=== PATIENT | female | born 1995 | race Caucasian/White ===

== ENCOUNTER 2018-07-21 16:22 | Emergency (ER) | payer BC ==
[2018-07-21] MEDS ORDERED: Zofran 4 MG/2 ML VIAL IV ONE (16:50)
[2018-07-21] MEDS ORDERED: MORPHINE SULFATE 2 MG INJ IV ONE (16:50)
[2018-07-21] MEDS ORDERED: Lactated Ringers 1,000 ML IV ONE ×4 (16:51→18:05)
[2018-07-21] MEDS ORDERED: Zofran 4 MG/2 ML VIAL ONE (17:04)
[2018-07-21] MEDS ORDERED: MORPHINE SULFATE 2 MG INJ ONE (17:04)
--- NOTE | 2018-07-21 17:05 | ERPHSYRPT ---
- History of Present Illness Time Seen by Provider: 07/21/18 16:35 Source: patient Exam Limitations: no limitations Physician History: patient became ill yesterday with abdominal cramps and n&V - clear fluid; no travel; no exposures; no prior hx; diarrhea started today aobut 2 hrs ago- clear watery; no bad food; ? fever and chills and abd cramps; no recent periods - on shots; Timing/Duration: yesterday (onset cramps generalized and N&V; diarrhea this pm) , sudden, worse Severity: severe Modifying Factors: Improves With: eating Associated Symptoms: nausea, vomiting, abdominal pain, chills, loss of appetite , other (diarrhea) Allergies/Adverse Reactions: No Known Drug Allergies Allergy (Unverified 07/21/18 17:02) - Review of Systems Constitutional: Fever, Chills Eyes: No Symptoms Ears, Nose, & Throat: No Symptoms Respiratory: Cough (sinus drainage), No Cyanosis, No Dyspnea, No Dyspnea on Exertion (SELLERS) Cardiac: Palpitations, No Chest Pain, No Edema, No Syncope, No PND Abdominal/Gastrointestinal: Abdominal Pain, Nausea, Vomiting, Diarrhea, No Constipation, No Hematemesis, No Hematochezia, No Melena Genitourinary Symptoms: No Symptoms Musculoskeletal: No Symptoms Skin: No Symptoms Neurological: No Symptoms Psychological: No Symptoms Endocrine: No Symptoms Hematologic/Lymphatic: No Symptoms Immunological/Allergic: No Symptoms - Past Medical History Pertinent Past Medical History: Yes Cardiac History: Arrhythmia - Past Surgical History Past Surgical History: Yes Cardiac: Other (ablation) Other Surgical History: T&A - Social History Smoking Status: Never smoker Exposure to second hand smoke: No Alcohol Use: Socially Drug Use: none Patient Lives Alone: No Significant Family History: no pertinent family hx - Female History Hx Now: No - Nursing Vital Signs Nursing Vital Signs: Initial Vital Signs Temperature 98.9 F 07/21/18 16:53 Pulse Rate 126 H 07/21/18 16:53 Respiratory Rate 20 07/21/18 16:53 Blood Pressure 123/89 07/21/18 16:53 O2 Sat by Pulse Oximetry 100 07/21/18 16:53 Pain Scale Pain Intensity 6 - Physical Exam General Appearance: moderate distress, alert, thin Eye Exam: PERRL/EOMI, eyes nml inspection Ears, Nose, Throat Exam: normal ENT inspection, TMs normal, pharynx normal, moist mucous membranes Neck Exam: normal inspection, non-tender, supple, full range of motion, No meningismus Respiratory Exam: normal breath sounds, lungs clear, airway intact, No chest tenderness, No respiratory distress Cardiovascular Exam: regular rate/rhythm, normal heart sounds, normal peripheral pulses, tachycardia (145), capillary refill 2-3 sec, No murmur, No edema, No pulse deficit Gastrointestinal/Abdomen Exam: soft, tenderness (slight epigastric), No normal bowel sounds (hyperactive), No distention, No guarding, No pulsatile mass, No rebound, No organomegaly Pelvic Exam: deferred Rectal Exam: deferred Back Exam: normal inspection, normal range of motion, No CVA tenderness Extremity Exam: normal inspection, normal range of motion, No guera's sign, No pedal edema Neurologic Exam: alert, oriented x 3, cooperative, ambulance paramedic II-XII nml as tested, nml station & gait Skin Exam: normal color, warm, dry, No rash, No petechiae, No jaundice, No cyanosis SpO2 Interpretation: normal SpO2: 99 Oxygen Delivery: Room Air - Course Nursing assessment & vital signs reviewed: Yes Rhythm Strip: Rate, Sinus Tachycardia (142) Ordered Tests: Active Orders 24 hr Category Date Time Status IV Insertion STAT Care 07/21/18 16:50 Active NPO (ED) STAT Care 07/21/18 16:50 Active Re-Check Vital Signs STAT Care 07/21/18 16:50 Active AMYLASE Stat Lab 07/21/18 17:21 Completed CBC W DIFF Stat Lab 07/21/18 17:21 Completed CMP Stat Lab 07/21/18 17:21 Completed HCG QUALITATIVE,SERUM Stat Lab 07/21/18 17:21 Completed LIPASE Stat Lab 07/21/18 17:21 Completed UA W/RFX UR CULTURE Stat Lab 07/21/18 Completed Medication Summary Generic Name Dose Route Start Last Admin Trade Name Freq PRN Reason Stop Dose Admin Lactated Ringer's 1,000 mls @ 999 mls/hr 07/21/18 18:05 07/21/18 18:13 Lactated Ringers IV 07/21/18 19:05 999 mls/hr .Q1H1M ONE Administration Discontinued Medications Generic Name Dose Route Start Last Admin Trade Name Freq PRN Reason Stop Dose Admin Lactated Ringer's 1,000 mls @ 999 mls/hr 07/21/18 16:51 07/21/18 17:09 Lactated Ringers IV 07/21/18 17:51 999 mls/hr .Q1H1M ONE Administration Lactated Ringer's Confirm 07/21/18 17:04 Lactated Ringers Administered 07/21/18 17:05 Dose 1,000 mls @ ud IV .STK-MED ONE Lactated Ringer's Confirm 07/21/18 18:04 Lactated Ringers Administered 07/21/18 18:05 Dose 1,000 mls @ ud IV .STK-MED ONE Morphine Sulfate 2 mg 07/21/18 16:50 07/21/18 17:09 Morphine Sulfate 2 Mg Inj IV 07/21/18 16:51 2 mg STAT ONE Administration Morphine Sulfate Confirm 07/21/18 17:04 Morphine Sulfate 2 Mg Inj Administered 07/21/18 17:05 Dose 2 mg .ROUTE .STK-MED ONE Ondansetron HCl 4 mg 07/21/18 16:50 07/21/18 17:09 Zofran 4 Mg/2 Ml Vial IV 07/21/18 16:51 4 mg STAT ONE Administration Ondansetron HCl Confirm 07/21/18 17:04 Zofran 4 Mg/2 Ml Vial Administered 07/21/18 17:05 Dose 4 mg .ROUTE .STK-MED ONE Promethazine HCl 12.5 mg 07/21/18 17:22 07/21/18 17:25 Phenergan 25 Mg Inj IV 07/21/18 17:23 12.5 mg STAT ONE Administration Promethazine HCl Confirm 07/21/18 17:23 Phenergan 25 Mg Inj Administered 07/21/18 17:24 Dose 25 mg .ROUTE .STK-MED ONE Lab/Rad Data: Laboratory Result Diagrams 07/21/18 17:21 07/21/18 17:21 Laboratory Results 07/21/18 07/21/18 07/21/18 Range/Units Unknown 17:21 17:21 WBC (4.0-10.5) K/mm3 RBC (4.1-5.4) M/mm3 Hgb (12.0-16.0) gm/dl Hct (35-47) % MCV (78-100) fl MCH (26-32) pg MCHC (32-36) g/dl RDW (11.5-14.0) % Plt Count (150-450) K/mm3 MPV (6-9.5) fl Gran % (36.0-66.0) % Eos # (Auto) (0-0.5) Absolute Lymphs (auto) (1.0-4.6) Absolute Monos (auto) (0.0-1.3) Lymphocytes % (24.0-44.0) % Monocytes % (0.0-12.0) % Eosinophils % (0.00-5.0) % Basophils % (0.0-0.4) % Absolute Granulocytes (1.4-6.9) Basophils # (0-0.4) Sodium 146 H (137-145) mmol/L Potassium 3.3 L (3.5-5.1) mmol/L Chloride 107 (98-107) mmol/L Carbon Dioxide 22 (22-30) mmol/L Anion Gap 19.9 H (5-15) MEQ/L BUN 8 (7-17) mg/dL Creatinine 0.76 (0.52-1.04) mg/dL Estimated GFR > 60.0 ML/MIN Glucose 127 H (74-106) mg/dL Calcium 10.1 (8.4-10.2) mg/dL Total Bilirubin 0.70 (0.2-1.3) mg/dL AST 23 (14-36) U/L ALT 23 (0-35) U/L Alkaline Phosphatase 109 (38-126) U/L Serum Total Protein 8.4 H (6.3-8.2) g/dL Albumin 5.3 H (3.5-5.0) g/dL Amylase 71 (30-110) U/L Lipase 52 (23-300) U/L Serum , Qual NEGATIVE (Negative) Ur Collection Type CCMS Urine Color YELLOW (YELLOW) Urine Appearance CLEAR (CLEAR) Urine pH 5.0 (5-6) Ur Specific [place] 1.025 (1.005-1.025) Urine Protein NEGATIVE (Negative) Urine Ketones LARGE (NEGATIVE) Urine Blood NEGATIVE (0-5) Pito/ul Urine Nitrite NEGATIVE (NEGATIVE) Urine Bilirubin NEGATIVE (NEGATIVE) Urine Urobilinogen NORMAL (0-1) mg/dL Ur Leukocyte Esterase NEGATIVE (NEGATIVE) Urine Culture Reflexed NO (NO) Urine Glucose NEGATIVE (NEGATIVE) mg/dL Specimen Received 07-21-18 1715 07/21/18 Range/Units 17:21 WBC 8.9 (4.0-10.5) K/mm3 RBC 4.52 (4.1-5.4) M/mm3 Hgb 14.8 (12.0-16.0) gm/dl Hct 40.4 (35-47) % MCV 89.4 (78-100) fl MCH 32.7 H (26-32) pg MCHC 36.6 H (32-36) g/dl RDW 12.8 (11.5-14.0) % Plt Count 205 (150-450) K/mm3 MPV 12.9 H (6-9.5) fl Gran % 79.7 H (36.0-66.0) % Eos # (Auto) 0.04 (0-0.5) Absolute Lymphs (auto) 1.29 (1.0-4.6) Absolute Monos (auto) 0.47 (0.0-1.3) Lymphocytes % 14.5 L (24.0-44.0) % Monocytes % 5.3 (0.0-12.0) % Eosinophils % 0.4 (0.00-5.0) % Basophils % 0.1 (0.0-0.4) % Absolute Granulocytes 7.10 H (1.4-6.9) Basophils # 0.01 (0-0.4) Sodium (137-145) mmol/L Potassium (3.5-5.1) mmol/L Chloride (98-107) mmol/L Carbon Dioxide (22-30) mmol/L Anion Gap (5-15) MEQ/L BUN (7-17) mg/dL Creatinine (0.52-1.04) mg/dL Estimated GFR ML/MIN Glucose (74-106) mg/dL Calcium (8.4-10.2) mg/dL Total Bilirubin (0.2-1.3) mg/dL AST (14-36) U/L ALT (0-35) U/L Alkaline Phosphatase (38-126) U/L Serum Total Protein (6.3-8.2) g/dL Albumin (3.5-5.0) g/dL Amylase (30-110) U/L Lipase (23-300) U/L Serum , Qual (Negative) Ur Collection Type Urine Color (YELLOW) Urine Appearance (CLEAR) Urine pH (5-6) Ur Specific [place] (1.005-1.025) Urine Protein (Negative) Urine Ketones (NEGATIVE) Urine Blood (0-5) Pito/ul Urine Nitrite (NEGATIVE) Urine Bilirubin (NEGATIVE) Urine Urobilinogen (0-1) mg/dL Ur Leukocyte Esterase (NEGATIVE) Urine Culture Reflexed (NO) Urine Glucose (NEGATIVE) mg/dL Specimen Received reviewed - Progress Progress: improved, re-examined Progress Note: 07/21/18 17:06 will give IV fluids, monitor and meds and recheck 07/21/18 17:23 rechecked and slight improvement in N&V but still present;still tahycardic; givning fluid bolus; UA clear and neg excpet for large ketones; will give phenergan, continue iv fluids and recheck 07/21/18 17:50 patient symptoms improving following meds and IV fluids; vS improving, N&V improving; CBC ok and preg test neg; significant other at bedside' will continue IV fluids 07/21/18 18:05 lytes showed low K+ of 3.3; will give second bolus of IV LR as vS improving; will monitor and recheck 07/21/18 18:51 much improved after second liter of fluids; feeling normal; vs normal; mother at bedside; treatmetn plan and instructions given Counseled pt/family regarding: lab results, diagnosis, need for follow-up - Departure Time of Disposition: 18:52 Departure Disposition: Home Clinical Impression: Acute gastroenteritis, Dehydration, Hypokalemia, Sinus tachycardia Condition: Good Critical Care Time: No Referrals: JANNET BRITO GEOLOGICAL SAMPLE TESTER [Primary Care Provider] - Instructions: Diarrhea and Traveler's Diarrhea -- Adult Additional Instructions: BRAT diet; yogurt; gatorade Follow-up with family doctor as directed. Call for appointment. Return if any problems. If you smoke please stop. Call or follow up with your family doctor for assistance if you need it to stop. Please wear your seatbelt when driving. Have a nice day. Thank you for allowing us to participate in your care today. :o) Dr Francisco Ibrahim Prescriptions: Ondansetron ODT 4 MG [Zofran Odt 4 mg] 4 mg PO Q6H PRN PRN #10 tab.rapdis PRN Reason: Nausea Loperamide HCl [Imodium A-D] 2 mg PO Q4-6HPRN PRN #10 tablet PRN Reason: Diarrhea
[2018-07-21 17:16] LABS: Appearance CLEAR (CLEAR); Leukocyte Esterase NEGATIVE (NEGATIVE); Nitrite NEGATIVE (NEGATIVE); Specific Gravity 1.025 (1.005-1.025)
[2018-07-21 17:17] LABS: Bilirubin NEGATIVE (NEGATIVE); Blood NEGATIVE Ery/ul (0-5); Glucose NEGATIVE (NEGATIVE); Ketones LARGE (NEGATIVE); Protein,Urine Dip NEGATIVE (Negative); Urobilinogen NORMAL mg/dL (0-1)
[2018-07-21] MEDS ORDERED: Phenergan 25 MG INJ IV ONE (17:22)
[2018-07-21] MEDS ORDERED: Phenergan 25 MG INJ ONE (17:23)
[2018-07-21 17:25] VITALS: O2SAT 99
[2018-07-21 17:34] LABS: BASOPHIL % 0.1 % (0.0-0.4); Basophil (Absolute #) 0.01 (0-0.4); Eosinophil % 0.4 % (0.00-5.0); Eosinophil (Absolute #) 0.04 (0-0.5); Granulocytes % 79.7 % (36.0-66.0); Hematocrit 40.4 % (35-47); Hemoglobin 14.8 gm/dl (12.0-16.0); Lymphocyte (Absolute #) 1.29 (1.0-4.6); Lymphocytes % 14.5 % (24.0-44.0); Mean Cell Volume 89.4 fl (78-100); Mean Corpuscular Hemoglobin 32.7 pg (26-32); Mean Corpuscular Hgb Concent. 36.6 g/dl (32-36); Mean Platelet Volume 12.9 fl (6-9.5); Monocyte (Absolute #) 0.47 (0.0-1.3); Monocytes % 5.3 % (0.0-12.0); Platelet Count 205 K/mm3 (150-450); Red Blood Count 4.52 M/mm3 (4.1-5.4); Red Cell Distribution Width 12.8 % (11.5-14.0); White Blood Count 8.9 K/mm3 (4.0-10.5)
[2018-07-21 17:58] LABS: ALBUMIN 5.3 g/dL (3.5-5.0); ALKALINE PHOSPHATASE 109 U/L (38-126); AMYLASE 71 U/L (30-110); ANION GAP 19.9 MEQ/L (5-15); BLOOD UREA NITROGEN 8 mg/dL (7-17); CHLORIDE 107 mmol/L (98-107); Calcium 10.1 mg/dL (8.4-10.2); Carbon Dioxide 22 mmol/L (22-30); Creatinine 1 0.76 mg/dL (0.52-1.04); Glucose 127 mg/dL (74-106); LIPASE 52 U/L (23-300); Potassium 3.3 mmol/L (3.5-5.1); SGOT/AST 23 U/L (14-36); SGPT/ALT 23 U/L (0-35); SODIUM 146 mmol/L (137-145); Total Protein 8.4 g/dL (6.3-8.2)
[2018-07-21 18:56] VITALS: BP 136/70; PULSE 53
== END 2018-07-21 19:28 | disposition home or self-care (01) ==
LOC: ED 16:22
DX: K52.9 Noninfective gastroenteritis and colitis, unspecified (principal); E86.0 Dehydration; E87.6 Hypokalemia; R00.0 Tachycardia, unspecified
CPT/HCPCS: 36000; 36415; 80053; 81002; 82150; 83690; 84703; 85025; 96360; 96361; 96374; 96375; 99284; J2270; J2405; J2550

== ENCOUNTER 2021-01-11 20:38 | Emergency (ER) | payer BC ==
[2021-01-11] MEDS ORDERED: Zofran 4 MG/2 ML VIAL IV ONE (20:56)
[2021-01-11] MEDS ORDERED: Sodium Chloride 0.9% 1000 ML 1,000 ML IV STA (20:56)
[2021-01-11] MEDS ORDERED: MORPHINE SULFATE 2 MG INJ IV ONE (20:56)
[2021-01-11] MEDS ORDERED: MORPHINE SULFATE 2 MG INJ ONE (21:06)
[2021-01-11] MEDS ORDERED: Zofran 4 MG/2 ML VIAL ONE (21:06)
[2021-01-11] MEDS ORDERED: Sodium Chloride 0.9% 1000 ML 1,000 ML ONE (21:07)
[2021-01-11 21:11] LABS: Appearance CLEAR (CLEAR); Bilirubin NEGATIVE (NEGATIVE); Blood NEGATIVE Ery/ul (0-5); Glucose NEGATIVE (NEGATIVE); Ketones TRACE (NEGATIVE); Leukocyte Esterase NEGATIVE (NEGATIVE); Mucus SLIGHT /HPF (NEGATIVE); Nitrite NEGATIVE (NEGATIVE); Protein,Urine Dip NEGATIVE (Negative); Specific Gravity 1.025 (1.005-1.025); Urobilinogen NEGATIVE mg/dL (0-1); WBC 0-2 /HPF (0-5)
[2021-01-11 21:12] VITALS: O2SAT 100
[2021-01-11 21:20] LABS: INR 1.11 (0.8-3.0); PROTIME 12.5 SECONDS (9.95-12.35)
[2021-01-11 21:21] LABS: Bacteria NONE SEEN /HPF (NEGATIVE)
[2021-01-11 21:25] LABS: ALBUMIN 4.3 g/dL (3.5-5.0); ALKALINE PHOSPHATASE 59 U/L (38-126); AMYLASE 63 U/L (30-110); ANION GAP 11.9 MEQ/L (5-15); BLOOD UREA NITROGEN 10 mg/dL (7-17); CHLORIDE 102 mmol/L (98-107); Calcium 9.9 mg/dL (8.4-10.2); Carbon Dioxide 26 mmol/L (22-30); Creatinine 1 0.54 mg/dL (0.52-1.04); EST GLOMERULAR FILTRATION RATE > 60.0 ML/MIN; Glucose 101 mg/dL (74-106); LIPASE 62 U/L (23-300); Potassium 4.1 mmol/L (3.5-5.1); SGOT/AST 21 U/L (14-36); SGPT/ALT 20 U/L (0-35); SODIUM 135 mmol/L (137-145); Total Protein 7.3 g/dL (6.3-8.2)
[2021-01-11 21:31] LABS: Absolute Neutrophil Ct (ANC) 9.88 (1.4-6.9); BASOPHIL % 0.1 % (0.0-0.4); Basophil (Absolute #) 0.01 (0-0.4); Eosinophil % 0.4 % (0.00-5.0); Eosinophil (Absolute #) 0.05 (0-0.5); Hematocrit 38.6 % (35-47); Hemoglobin 12.9 gm/dl (12.0-16.0); Lymphocyte (Absolute #) 1.62 (1.0-4.6); Lymphocytes % 13.2 % (24.0-44.0); Mean Cell Volume 92.1 fl (78-100); Mean Corpuscular Hemoglobin 30.8 pg (26-32); Mean Corpuscular Hgb Concent. 33.4 g/dl (32-36); Mean Platelet Volume 11.8 fl (7.5-11.0); Monocyte (Absolute #) 0.72 (0.0-1.3); Monocytes % 5.9 % (0.0-12.0); Neutrophil % 80.4 % (36.0-66.0); Platelet Count 217 K/mm3 (150-450); Red Blood Count 4.19 M/mm3 (4.1-5.4); Red Cell Distribution Width 12.2 % (11.5-14.0); White Blood Count 12.3 K/mm3 (4.0-10.5)
--- NOTE | 2021-01-11 21:34 | ERPHSYRPT ---
- History of Present Illness Time Seen by Provider: 01/11/21 20:55 Historian: patient Exam Limitations: no limitations Patient Subjective Stated Complaint: pt states that "I have had nausea and vomiting consent for the past 4 hours." Triage Nursing Assessment: pt ambulated into the er; pt is axo x3; c/o N/V/D; c/o RLQ pain; pt states that she has had diarrhea for the past week; pt denies fever; pt states that emesis is yellow to white; pt states that she is unable to keep things down after ingestion; pt states that she is 8 weeks and 6 days p regnant; abd is soft; active bowel sounds in all quads; clear heart tone; clear lung sounds in all lobes; strong radial pulses; mucus membranes are pink and moist; afebrile; vitals wnl Physician History: Patient is a 25-year-old 2 para 2 female at 9 weeks gestation who presents with 4 hours worth of uncontrollable nausea and vomiting. She has seen Dr. Landry who will be taking her care she had an ultrasound done on 31 December which did show a single intrauterine at 7 weeks with a small subchorionic hemorrhage. Patient also complains of right-sided crampy pain for several days some slight spotting probably secondary to the subchorionic hemorrhage and the nausea and vomiting. Timing/Duration: day(s) (Several) Activities at Onset: none Quality: cramping Abdominal Pain Onset Location: RLQ Pain Radiation: no radiation Severity of Pain-Max: moderate Severity of Pain-Current: moderate Modifying Factors: Improves With: nothing Associated Symptoms: diarrhea, nausea, vomiting Allergies/Adverse Reactions: No Known Drug Allergies Allergy (Verified 01/11/21 20:52) Home Medications: Propranolol HCl 60 mg PO DAILY 01/11/21 [History] Hx Tetanus, Diphtheria Vaccination/Date Given: Yes Hx Influenza Vaccination/Date Given: No Hx Pneumococcal Vaccination/Date Given: No Travel Risk - International Travel Have you traveled outside of the country in past 3 weeks: No - Coronavirus Screening Are you exhibiting any of the following symptoms?: Yes Symptoms: Vomiting/Diarrhea Close contact with a COVID-19 positive Pt in past 14-21 Days: No - Review of Systems Constitutional: No Fever, No Chills Eyes: No Symptoms Ears, Nose, & Throat: No Symptoms Respiratory: No Cough, No Dyspnea Cardiac: No Chest Pain, No Edema, No Syncope Abdominal/Gastrointestinal: Abdominal Pain, Nausea, Vomiting, Diarrhea Genitourinary Symptoms: No Dysuria Musculoskeletal: No Back Pain, No Neck Pain Skin: No Rash Neurological: No Dizziness, No Focal Weakness, No Sensory Changes Psychological: No Symptoms Endocrine: No Symptoms All Other Systems: Reviewed and Negative - Past Medical History Pertinent Past Medical History: Yes Cardiac History: Arrhythmia - Past Surgical History Past Surgical History: Yes Cardiac: Other Musculoskeletal: Orthopedic Surgery Other Surgical History: T&A,left hand surgery - Social History Smoking Status: Never smoker Exposure to second hand smoke: No Alcohol Use: Socially Drug Use: none Patient Lives Alone: No Significant Family History: no pertinent family hx - Female History Hx Now: Yes (8 weeks 6 days) - Nursing Vital Signs Nursing Vital Signs: Initial Vital Signs Temperature 98.3 F 01/11/21 20:48 Pulse Rate 102 H 01/11/21 20:48 Respiratory Rate 18 01/11/21 20:48 Blood Pressure 137/89 01/11/21 20:48 O2 Sat by Pulse Oximetry 100 01/11/21 20:48 Pain Scale Pain Intensity 2 - Physical Exam General Appearance: mild distress, alert Eye Exam: PERRL/EOMI, eyes nml inspection Ears, Nose, Throat Exam: normal ENT inspection, pharynx normal, moist mucous membranes Neck Exam: normal inspection, non-tender, supple, full range of motion Respiratory Exam: normal breath sounds, lungs clear, No respiratory distress Cardiovascular Exam: regular rate/rhythm, normal heart sounds Gastrointestinal/Abdomen Exam: soft, normal bowel sounds, other (Even though the patient is approximately 8 weeks and for 5 days we did obtain heart tones with the Doppler), No tenderness, No mass Pelvic Exam: not done Back Exam: normal inspection, normal range of motion, No CVA tenderness, No vertebral tenderness Extremity Exam: normal inspection, normal range of motion, pelvis stable Neurologic Exam: alert, oriented x 3, cooperative, normal mood/affect, nml cerebellar function, sensation nml, No motor deficits Skin Exam: normal color, warm, dry SpO2: 100 - Course Nursing assessment & vital signs reviewed: Yes Ordered Tests: Active Orders 24 hr Category Date Time Status IV Insertion STAT Care 01/11/21 20:56 Active AMYLASE Stat Lab 01/11/21 21:05 Completed CBC W DIFF Stat Lab 01/11/21 21:05 Completed CMP Stat Lab 01/11/21 21:05 Completed LIPASE Stat Lab 01/11/21 21:05 Completed Lactic Acid Stat Lab 01/11/21 21:15 Completed PROTIME WITH INR Stat Lab 01/11/21 21:05 Completed UA W/RFX UR CULTURE Stat Lab 01/11/21 21:05 Completed Medication Summary Discontinued Medications Generic Name Dose Route Start Last Admin Trade Name Lavonne PRN Reason Stop Dose Admin Sodium Chloride 1,000 mls @ 999 mls/hr 01/11/21 20:56 01/11/21 21:09 Sodium Chloride 0.9% 1000 Ml IV 01/11/21 21:56 999 mls/hr .Q1H1M STA Administration Sodium Chloride Confirm 01/11/21 21:07 Sodium Chloride 0.9% 1000 Ml Administered 01/11/21 21:08 Dose 1,000 mls @ ud .ROUTE .STK-MED ONE Morphine Sulfate 2 mg 01/11/21 20:56 01/11/21 21:12 Morphine Sulfate 2 Mg Inj IV 01/11/21 20:57 2 mg STAT ONE Administration Morphine Sulfate Confirm 01/11/21 21:06 Morphine Sulfate 2 Mg Inj Administered 01/11/21 21:07 Dose 2 mg .ROUTE .STK-MED ONE Ondansetron HCl 4 mg 01/11/21 20:56 01/11/21 21:10 Zofran 4 Mg/2 Ml Vial IV 01/11/21 20:57 4 mg STAT ONE Administration Ondansetron HCl Confirm 01/11/21 21:06 Zofran 4 Mg/2 Ml Vial Administered 01/11/21 21:07 Dose 4 mg .ROUTE .STK-MED ONE Lab/Rad Data: Laboratory Result Diagrams 01/11/21 21:05 01/11/21 21:05 Laboratory Results 01/11/21 01/11/21 01/11/21 Range/Units 21:15 21:05 21:05 WBC (4.0-10.5) K/mm3 RBC (4.1-5.4) M/mm3 Hgb (12.0-16.0) gm/dl Hct (35-47) % MCV (78-100) fl MCH (26-32) pg MCHC (32-36) g/dl RDW (11.5-14.0) % Plt Count (150-450) K/mm3 MPV (7.5-11.0) fl Gran % (36.0-66.0) % Eos # (Auto) (0-0.5) Absolute Lymphs (auto) (1.0-4.6) Absolute Monos (auto) (0.0-1.3) Lymphocytes % (24.0-44.0) % Monocytes % (0.0-12.0) % Eosinophils % (0.00-5.0) % Basophils % (0.0-0.4) % Absolute Granulocytes (1.4-6.9) Basophils # (0-0.4) PT 12.5 H (9.95-12.35) SECONDS INR 1.11 (0.8-3.0) Sodium (137-145) mmol/L Potassium (3.5-5.1) mmol/L Chloride (98-107) mmol/L Carbon Dioxide (22-30) mmol/L Anion Gap (5-15) MEQ/L BUN (7-17) mg/dL Creatinine (0.52-1.04) mg/dL Estimated GFR ML/MIN Glucose (74-106) mg/dL Lactic Acid 1.4 (0.4-2.0) Calcium (8.4-10.2) mg/dL Total Bilirubin (0.2-1.3) mg/dL AST (14-36) U/L ALT (0-35) U/L Alkaline Phosphatase (38-126) U/L Serum Total Protein (6.3-8.2) g/dL Albumin (3.5-5.0) g/dL Amylase (30-110) U/L Lipase (23-300) U/L Urine Color YELLOW (YELLOW) Urine Appearance CLEAR (CLEAR) Urine pH 5.0 (5-6) Ur Specific [place] 1.025 (1.005-1.025) Urine Protein NEGATIVE (Negative) Urine Ketones TRACE (NEGATIVE) Urine Blood NEGATIVE (0-5) Pito/ul Urine Nitrite NEGATIVE (NEGATIVE) Urine Bilirubin NEGATIVE (NEGATIVE) Urine Urobilinogen NEGATIVE (0-1) mg/dL Ur Leukocyte Esterase NEGATIVE (NEGATIVE) Urine WBC (Auto) 0-2 (0-5) /HPF Urine RBC (Auto) NONE (0-2) /HPF U Epithel Cells (Auto) NONE (FEW) /HPF Urine Bacteria (Auto) NONE SEEN (NEGATIVE) /HPF Urine Mucus (Auto) SLIGHT (NEGATIVE) /HPF Urine Culture Reflexed NO (NO) Urine Glucose NEGATIVE (NEGATIVE) mg/dL 01/11/21 01/11/21 Range/Units 21:05 21:05 WBC 12.3 H (4.0-10.5) K/mm3 RBC 4.19 (4.1-5.4) M/mm3 Hgb 12.9 (12.0-16.0) gm/dl Hct 38.6 (35-47) % MCV 92.1 (78-100) fl MCH 30.8 (26-32) pg MCHC 33.4 (32-36) g/dl RDW 12.2 (11.5-14.0) % Plt Count 217 (150-450) K/mm3 MPV 11.8 H (7.5-11.0) fl Gran % 80.4 H (36.0-66.0) % Eos # (Auto) 0.05 (0-0.5) Absolute Lymphs (auto) 1.62 (1.0-4.6) Absolute Monos (auto) 0.72 (0.0-1.3) Lymphocytes % 13.2 L (24.0-44.0) % Monocytes % 5.9 (0.0-12.0) % Eosinophils % 0.4 (0.00-5.0) % Basophils % 0.1 (0.0-0.4) % Absolute Granulocytes 9.88 H (1.4-6.9) Basophils # 0.01 (0-0.4) PT (9.95-12.35) SECONDS INR (0.8-3.0) Sodium 135 L (137-145) mmol/L Potassium 4.1 (3.5-5.1) mmol/L Chloride 102 (98-107) mmol/L Carbon Dioxide 26 (22-30) mmol/L Anion Gap 11.9 (5-15) MEQ/L BUN 10 (7-17) mg/dL Creatinine 0.54 (0.52-1.04) mg/dL Estimated GFR > 60.0 ML/MIN Glucose 101 (74-106) mg/dL Lactic Acid (0.4-2.0) Calcium 9.9 (8.4-10.2) mg/dL Total Bilirubin 0.30 (0.2-1.3) mg/dL AST 21 (14-36) U/L ALT 20 (0-35) U/L Alkaline Phosphatase 59 (38-126) U/L Serum Total Protein 7.3 (6.3-8.2) g/dL Albumin 4.3 (3.5-5.0) g/dL Amylase 63 (30-110) U/L Lipase 62 (23-300) U/L Urine Color (YELLOW) Urine Appearance (CLEAR) Urine pH (5-6) Ur Specific [place] (1.005-1.025) Urine Protein (Negative) Urine Ketones (NEGATIVE) Urine Blood (0-5) Pito/ul Urine Nitrite (NEGATIVE) Urine Bilirubin (NEGATIVE) Urine Urobilinogen (0-1) mg/dL Ur Leukocyte Esterase (NEGATIVE) Urine WBC (Auto) (0-5) /HPF Urine RBC (Auto) (0-2) /HPF U Epithel Cells (Auto) (FEW) /HPF Urine Bacteria (Auto) (NEGATIVE) /HPF Urine Mucus (Auto) (NEGATIVE) /HPF Urine Culture Reflexed (NO) Urine Glucose (NEGATIVE) mg/dL - Progress Progress: improved - Departure Departure Disposition: Home Clinical Impression: Nausea/vomiting in Condition: Stable Critical Care Time: No Referrals: JANNET BRITO LINE MANAGER [Primary Care Provider] - Instructions: Nausea and Vomiting of (DC) Prescriptions: Ondansetron ODT 4 MG [Zofran Odt 4 mg] 4 mg PO Q6H PRN PRN #10 tab.rapdis PRN Reason: Vomiting
[2021-01-11 22:03] VITALS: BP 125/78; PULSE 81
[2021-01-11] MEDS ORDERED: ZOFRAN ODT 4 MG PO ONE (22:16)
[2021-01-11] MEDS ORDERED: ZOFRAN ODT 4 MG ONE (22:18)
== END 2021-01-11 22:25 | disposition home or self-care (01) ==
LOC: ED 20:38
DX: O21.0 Mild hyperemesis gravidarum (principal); O26.851 Spotting complicating pregnancy, first trimester; Z3A.09 9 weeks gestation of pregnancy; R19.7 Diarrhea, unspecified; R10.31 Right lower quadrant pain
CPT/HCPCS: 36000; 36415; 80053; 81001; 82150; 83605; 83690; 85025; 85610; 96360; 96374; 96375; 99284; J2270; J2405; Q0162

== ENCOUNTER 2021-05-16 12:07 | Observation (INO) | payer MEDICAID ==
[2021-05-16 14:24] VITALS: BP 126/79; PULSE 95
[2021-05-16 18:35] VITALS: O2SAT 100
== END 2021-05-16 16:20 | disposition home or self-care (01) ==
LOC: OB 12:07
PROVIDERS: ADMIT Family Medicine; ATTEND Family Medicine
DX: Z34.82 Encounter for supervision of other normal pregnancy, second trimester (principal); Z3A.26 26 weeks gestation of pregnancy
CPT/HCPCS: 59025; G0378

== ENCOUNTER 2021-06-25 10:10 | Observation (INO) | payer OTHER ==
[2021-06-25 11:00] VITALS: BP 108/74; PULSE 97
--- NOTE | 2021-06-25 21:11 | XRAY ---
Exam: OB biophysical profile with nonstress from 06/25/2021. Comparison: None. Indication: History of preeclampsia. Findings: The fetus scored 2 points out of a maximum of 2 points for breathing movements, gross body movements, tone, and qualitative amniotic fluid volume. A single live fetus is seen in the cephalic lie. heart rate was 145 bpm. Amniotic fluid index was approximately 13.8 cm. Impression: 1. Biophysical profile score was 8 points out of a maximum of 8 points. See above.
== END 2021-06-25 12:15 | disposition home or self-care (01) ==
LOC: OB 10:10
PROVIDERS: ADMIT Family Medicine; ATTEND Family Medicine
DX: O14.93 Unspecified pre-eclampsia, third trimester (principal); Z3A.32 32 weeks gestation of pregnancy
CPT/HCPCS: 59025; 76818; G0378

== ENCOUNTER 2021-06-29 17:21 | Observation (INO) | payer OTHER ==
[2021-06-29 18:41] VITALS: O2SAT 97
[2021-06-29 19:15] LABS: White Blood Count 9.3 K/mm3 (4.0-10.5)
[2021-06-29 19:16] LABS: Hematocrit 31.7 % (35-47); Hemoglobin 10.3 gm/dl (12.0-16.0); Mean Cell Volume 97.5 fl (78-100); Mean Corpuscular Hemoglobin 31.7 pg (26-32); Mean Corpuscular Hgb Concent. 32.5 g/dl (32-36); Mean Platelet Volume 11.5 fl (7.5-11.0); Platelet Count 125 K/mm3 (150-450); Red Blood Count 3.25 M/mm3 (4.1-5.4); Red Cell Distribution Width 14.4 % (11.5-14.0)
[2021-06-29 19:22] LABS: ALBUMIN 3.6 g/dL (3.5-5.0); ALKALINE PHOSPHATASE 67 U/L (38-126); ANION GAP 12.7 MEQ/L (5-15); BLOOD UREA NITROGEN 5 mg/dL (7-17); CHLORIDE 105 mmol/L (98-107); Calcium 9.4 mg/dL (8.4-10.2); Carbon Dioxide 23 mmol/L (22-30); Creatinine 1 0.43 mg/dL (0.52-1.04); EST GLOMERULAR FILTRATION RATE > 60.0 ML/MIN; Glucose 106 mg/dL (74-106); Potassium 3.7 mmol/L (3.5-5.1); SGOT/AST 18 U/L (14-36); SGPT/ALT 9 U/L (0-35); SODIUM 137 mmol/L (137-145); Total Protein 6.5 g/dL (6.3-8.2)
[2021-06-29 19:52] LABS: BAND 3 % (0.0-2.0); Eosinophil 2 % (0.00-3.0); Lymphocytes 14 % (24-44); Metamyelocyte 3 %; Monocyte 4 % (0.0-12.0); Neutrophils 74 % (36.0-66.0); Platelet Estimate NORMAL (NORMAL); Total Cells Counted 100
[2021-06-29 20:06] LABS: Appearance CLEAR (CLEAR); Bilirubin NEGATIVE (NEGATIVE); Blood NEGATIVE Ery/ul (0-5); Epithelial Cells RARE /HPF (FEW); Glucose NEGATIVE (NEGATIVE); Ketones NEGATIVE (NEGATIVE); Leukocyte Esterase TRACE (NEGATIVE); Nitrite NEGATIVE (NEGATIVE); Protein,Urine Dip NEGATIVE (Negative); Urobilinogen NEGATIVE mg/dL (0-1)
[2021-06-29 20:23] LABS: Bacteria NONE SEEN /HPF (NEGATIVE)
[2021-06-29 20:38] VITALS: BP 123/77; PULSE 95
== END 2021-06-29 20:35 | disposition home or self-care (01) ==
LOC: OB 17:21
PROVIDERS: ADMIT Family Medicine; ATTEND Family Medicine
DX: Z34.83 Encounter for supervision of other normal pregnancy, third trimester (principal); Z3A.33 33 weeks gestation of pregnancy
CPT/HCPCS: 36415; 80053; 81001; 85025; G0378

== ENCOUNTER 2021-07-01 07:37 | Observation (INO) | payer OTHER ==
[2021-07-01 12:50] VITALS: BP 115/73; PULSE 107
--- NOTE | 2021-07-01 13:02 | XRAY ---
Indication: Preeclampsia. Ultrasound biophysical profile exam performed and compared to June 25, 2021. Again single viable intrauterine with heart rate 150 BPM. Four-quadrant DELORIS is 14.6 cm, largest pocket 4.4 cm. 2 points given for breathing, movements, tone, and qualitative amniotic fluid volume. Impression: Biophysical profile score remains 8 out of 8.
== END 2021-07-01 13:15 | disposition home or self-care (01) ==
LOC: OB 11:33
PROVIDERS: ADMIT Family Medicine; ATTEND Family Medicine
DX: O14.93 Unspecified pre-eclampsia, third trimester (principal); Z3A.33 33 weeks gestation of pregnancy
CPT/HCPCS: 59025; 76818; G0378

== ENCOUNTER 2021-07-08 11:29 | Observation (INO) | payer OTHER ==
--- NOTE | 2021-07-08 12:29 | XRAY ---
Exam: OB biophysical profile without nonstress from 07/08/2021. Comparison: OB biophysical profile with nonstress from 07/01/2021. Indication: 26-year-old female for follow-up; history of gestational diabetes. Findings: The heart rate measured 147 bpm. The fetus scored 2 points for breathing movements, gross body movements, tone, and qualitative amniotic fluid. The amniotic fluid index measured 15.4 cm, previously 14.6 cm. Impression: 1. OB biophysical profile scored 8 points out of a maximum of 8 points representing no significant change from 07/01/2021.
[2021-07-08 12:34] VITALS: BP 118/74; PULSE 110; O2SAT 97
== END 2021-07-08 12:47 | disposition home or self-care (01) ==
LOC: OB 11:29
PROVIDERS: ADMIT Family Medicine; ATTEND Family Medicine
DX: O14.93 Unspecified pre-eclampsia, third trimester (principal); Z3A.34 34 weeks gestation of pregnancy
CPT/HCPCS: 59025; 76819; G0378

== ENCOUNTER 2021-07-15 07:21 | Observation (INO) | payer OTHER ==
--- NOTE | 2021-07-15 12:35 | XRAY ---
Indication: well-being. Ultrasound biophysical profile exam performed. Comparison: July 08, 2021. Again single viable intrauterine with heart rate 152 BPM. Four-quadrant DELORIS is 9.8 cm, largest pocket 4.7 cm. 2 points given for breathing, movements, tone, and qualitative amniotic fluid volume. Impression: Biophysical profile score remains 8 out of 8.
== END 2021-07-15 13:10 | disposition home or self-care (01) ==
LOC: OB 11:41
PROVIDERS: ADMIT Family Medicine; ATTEND Family Medicine
DX: O14.93 Unspecified pre-eclampsia, third trimester (principal); Z3A.35 35 weeks gestation of pregnancy
CPT/HCPCS: 59025; 76818; G0378

== ENCOUNTER 2021-07-21 11:18 | Observation (INO) | payer OTHER ==
[2021-07-21 12:24] VITALS: BP 118/75; PULSE 98
--- NOTE | 2021-07-21 12:33 | XRAY ---
Indication: well-being. Ultrasound biophysical profile study performed and compared to July 15, 2021. Single intrauterine with heart rate 138 BPM. Four-quadrant DELORIS is 11 cm, largest pocket 3.8 cm. 2 points given for breathing, movements, tone, and qualitative amniotic fluid volume. Impression: Total biophysical profile score is again 8 out of 8.
== END 2021-07-21 13:20 | disposition home or self-care (01) ==
LOC: OB 11:44
PROVIDERS: ADMIT Family Medicine; ATTEND Family Medicine
DX: O14.93 Unspecified pre-eclampsia, third trimester (principal); Z3A.36 36 weeks gestation of pregnancy
CPT/HCPCS: 59025; 76818; G0378

== ENCOUNTER 2021-07-29 09:11 | Observation (INO) | payer OTHER ==
--- NOTE | 2021-07-29 11:36 | XRAY ---
Indication: Preeclampsia. Ultrasound biophysical profile study performed and compared to July 21, 2021. Again single intrauterine with heart rate 153 BPM. Four-quadrant DELORIS is 14.9 cm, largest pocket 4.5 cm. 2 points given for breathing, movements, tone, and qualitative amniotic fluid volume. Impression: Total biophysical profile score remains 8 out of 8.
[2021-07-29 12:29] VITALS: BP 126/79
== END 2021-07-29 12:10 | disposition home or self-care (01) ==
LOC: OB 10:58
PROVIDERS: ADMIT Family Medicine; ATTEND Family Medicine
DX: O14.93 Unspecified pre-eclampsia, third trimester (principal); Z3A.37 37 weeks gestation of pregnancy
CPT/HCPCS: 59025; 76818; G0378

== ENCOUNTER 2021-08-03 08:21 | Inpatient (IN) | payer OTHER ==
[2021-08-03] MEDS ORDERED: BRETHINE 1 MG/ML SQ PRN (16:02)
[2021-08-03] MEDS ORDERED: STADOL 2 MG IV PRN (18:00)
[2021-08-03] MEDS ORDERED: Zofran 4 MG/2 ML VIAL IV PRN (18:00)
[2021-08-03] MEDS ORDERED: Cervidil 10 MG VAG SCH (18:00)
[2021-08-03] MEDS ORDERED: Nubain 10 MG/ML IV PRN (18:00)
[2021-08-03 18:08] LABS: Hematocrit 32.7 % (35-47); Mean Cell Volume 95.9 fl (78-100); Mean Corpuscular Hemoglobin 32.3 pg (26-32); Mean Corpuscular Hgb Concent. 33.6 g/dl (32-36); Mean Platelet Volume 12.1 fl (7.5-11.0); Platelet Count 125 K/mm3 (150-450); Red Blood Count 3.41 M/mm3 (4.1-5.4); Red Cell Distribution Width 13.8 % (11.5-14.0); White Blood Count 9.8 K/mm3 (4.0-10.5)
[2021-08-03 18:46] LABS: Amphetamine,Urine NEGATIVE (NEGATIVE); Barbiturate,Urine NEGATIVE (NEGATIVE); Benzodiazepine,Urine NEGATIVE (NEGATIVE); Cocaine,Urine NEGATIVE (NEGATIVE); Methadone,Urine NEGATIVE (NEGATIVE); Opiate,Urine NEGATIVE (NEGATIVE); PCP,Urine NEGATIVE (NEGATIVE); THC,Urine NEGATIVE (NEGATIVE)
[2021-08-03 19:16] LABS: ABO TYPING A; Antibody Screen NEGATIVE (NEGATIVE); RH TYPING NEGATIVE
[2021-08-03 19:40] LABS: ALBUMIN 3.8 g/dL (3.5-5.0); ALKALINE PHOSPHATASE 112 U/L (38-126); ANION GAP 14.6 MEQ/L (5-15); BLOOD UREA NITROGEN 9 mg/dL (7-17); CHLORIDE 105 mmol/L (98-107); Calcium 9.8 mg/dL (8.4-10.2); Carbon Dioxide 20 mmol/L (22-30); Creatinine 1 0.58 mg/dL (0.52-1.04); EST GLOMERULAR FILTRATION RATE > 60.0 ML/MIN; Glucose 113 mg/dL (74-106); Potassium 3.6 mmol/L (3.5-5.1); SGOT/AST 20 U/L (14-36); SGPT/ALT 13 U/L (0-35); SODIUM 136 mmol/L (137-145); Total Protein 6.5 g/dL (6.3-8.2); Uric Acid 5.6 mg/dL (2.6-6.0)
[2021-08-03 19:54] LABS: Appearance SLIGHTLY CLOUDY (CLEAR); Bilirubin NEGATIVE (NEGATIVE); Blood NEGATIVE Ery/ul (0-5); Glucose NEGATIVE (NEGATIVE); Ketones NEGATIVE (NEGATIVE); Leukocyte Esterase TRACE (NEGATIVE); Mucus SLIGHT /HPF (NEGATIVE); Nitrite NEGATIVE (NEGATIVE); Protein,Urine Dip NEGATIVE (Negative); Specific Gravity 1.014 (1.005-1.025); Urobilinogen NEGATIVE mg/dL (0-1)
[2021-08-03 20:56] LABS: Lymphocytes 18 % (24-44); Monocyte 8 % (0.0-12.0); Neutrophils 74 % (36.0-66.0); Total Cells Counted 100
[2021-08-03 20:57] LABS: Platelet Estimate DECREASED (NORMAL)
[2021-08-03] MEDS: Lactated Ringers 1,000 ML IV SCH (22:19)
[2021-08-03] MEDS ORDERED: CLARITIN 10 MG PO ONE (23:00)
[2021-08-03] MEDS ORDERED: Pepcid 20 MG PO ONE (23:00)
[2021-08-03] MEDS: Trandate 100 MG PO ONE (23:06)
[2021-08-03] MEDS: STADOL 2 MG IV PRN (23:06)
[2021-08-04] MEDS: Trandate 100 MG PO ONE (01:14)
[2021-08-04] MEDS: Lactated Ringers 1,000 ML IV SCH ×3 (04:54→20:13)
[2021-08-04] MEDS ORDERED: OMNIPEN 2 GM*** 2 G in Sodium Chloride 100ML MINI-BAG PLUS 100 ML IV ONE (06:00)
[2021-08-04] MEDS: STADOL 2 MG IV PRN (06:00)
[2021-08-04] MEDS ORDERED: PITOCIN 30 UNITS/ LR 500 ML 30 UNITS/500 ML IV.SOLN. IV SCH (06:00)
[2021-08-04] MEDS ORDERED: MEDICATION INTERVENTION MC SCH (09:30)
[2021-08-04] MEDS ORDERED: OMNIPEN 1 GM ONE (09:41)
[2021-08-04] MEDS: OMNIPEN 1 GM*** 1 GM in Sodium Chloride 100ML MINI-BAG PLUS 100 ML IV SCH ×3 (09:52→20:15)
[2021-08-04] MEDS ORDERED: NON-FORMULARY ITEM (Prenatal Vits W-Ca,Fe,Fa(<1mg) [Prenatal] 1 EACH) PO SCH (10:00)
[2021-08-04] MEDS ORDERED: STADOL 2 MG IV PRN (10:31)
[2021-08-04] MEDS ORDERED: Lactated Ringers 1,000 ML IV ONE (13:05)
[2021-08-04] MEDS ORDERED: OB EPIDURAL NAROPIN/SUFENTANIL IN NACL EPIDURAL PRN (13:05)
[2021-08-04] MEDS ORDERED: Anucort-HC SUPPOSITORY PR PRN (13:59)
[2021-08-04] MEDS ORDERED: Dulcolax 10 MG SUPP PR PRN (13:59)
[2021-08-04] MEDS ORDERED: Dermoplast Spray TP PRN (13:59)
[2021-08-04] MEDS ORDERED: Mylicon 80MG PO PRN (13:59)
[2021-08-04] MEDS ORDERED: CORTISONE 1% CREAM TP PRN (13:59)
[2021-08-04] MEDS ORDERED: XYLOCAINE 1% HCL 20 ML MDV IJ PRN (14:05)
[2021-08-04] MEDS: TYLENOL EXTRA STRENGTH 500 MG PO PRN ×4 (15:24→23:41)
[2021-08-04] MEDS ORDERED: TUCKS TP PRN (17:31)
[2021-08-04] MEDS ORDERED: LANSINOH 40 GM TOP PRN (17:31)
[2021-08-04] MEDS ORDERED: Rhogam Plus 300 MCG IM ONE (18:16)
[2021-08-04] MEDS: Trandate 100 MG PO SCH ×2 (20:13→22:23)
[2021-08-04] MEDS: Colace 100 MG PO SCH (22:26)
[2021-08-04] MEDS ORDERED: Pepcid 20 MG PO ONE (23:00)
[2021-08-04] MEDS: NORCO 5/325 MG PO PRN (23:47)
[2021-08-05] MEDS: NORCO 5/325 MG PO PRN (03:58)
[2021-08-05 06:35] LABS: Hematocrit 32.4 % (35-47); Hemoglobin 10.7 gm/dl (12.0-16.0); Mean Cell Volume 97.6 fl (78-100); Mean Corpuscular Hemoglobin 32.2 pg (26-32); Platelet Count 116 K/mm3 (150-450); Red Blood Count 3.32 M/mm3 (4.1-5.4); Red Cell Distribution Width 13.8 % (11.5-14.0)
[2021-08-05 08:12] LABS: BAND 2 % (0.0-2.0); Basophil 1 % (0.0-1.0); Lymphocytes 15 % (24-44); Monocyte 5 % (0.0-12.0); Neutrophils 77 % (36.0-66.0); Platelet Estimate NORMAL (NORMAL); Total Cells Counted 100; Toxic Granulation 2+
[2021-08-05] MEDS ORDERED: Rhogam Plus 300 MCG IM ONE (09:00)
[2021-08-05] MEDS: Colace 100 MG PO SCH ×2 (10:52→22:03)
[2021-08-05] MEDS: FERREX 150 PO SCH (10:52)
[2021-08-05] MEDS: TYLENOL EXTRA STRENGTH 500 MG PO PRN (10:52)
[2021-08-05] MEDS: Trandate 100 MG PO SCH ×3 (10:53→21:55)
[2021-08-05] MEDS ORDERED: Lactated Ringers 1,000 ML IV ONE (17:41)
[2021-08-06 02:54] VITALS: O2SAT 98
[2021-08-06 06:29] LABS: Hematocrit 31.9 % (35-47); Hemoglobin 10.5 gm/dl (12.0-16.0); Mean Cell Volume 97.3 fl (78-100); Mean Corpuscular Hgb Concent. 32.9 g/dl (32-36); Mean Platelet Volume 12.7 fl (7.5-11.0); Platelet Count 116 K/mm3 (150-450); Red Blood Count 3.28 M/mm3 (4.1-5.4); Red Cell Distribution Width 13.8 % (11.5-14.0); White Blood Count 11.7 K/mm3 (4.0-10.5)
--- NOTE | 2021-08-06 08:12 | PCM.DS ---
Discharge Summary Date of Admission: 08/04/21 08:21 Admitting Physician: DK LAW Primary Care Provider: JANNET BRITO NP Allergies Allergies shellfish derived Allergy (Severe, Verified 08/03/21 19:36) Swelling aspirin Adverse Reaction (Severe, Verified 08/03/21 19:35) Hives jalapeno Allergy (Severe, Uncoded 08/03/21 19:36) Swelling Hospital Summary - Hospital Course Hospital Course: patient had on 08/04, induced at 38wks with GDM and mild preeclampsia, has been normotensive with no meds since delivery and blood glucose normal and requiring no intervention. doing great, , mild lochia, minimal pain controlled with ibuprofen. had second degree perineal laceration repair - Vitals & Intake/Output Vital Signs: Vital Signs Temperature 98.3 F 08/06/21 02:00 Pulse Rate 77 08/06/21 02:00 Respiratory Rate 16 08/06/21 02:00 Blood Pressure 119/76 08/06/21 02:00 O2 Sat by Pulse Oximetry 98 08/06/21 02:00 Intake & Output: Intake & Output 08/03/21 08/04/21 08/05/21 08/06/21 11:59 11:59 11:59 11:59 Intake Total 1618 2300 1800 Balance 1618 2300 1800 Weight 86.035 kg - Lab Result Diagrams: 08/06/21 05:30 08/03/21 18:01 Lab Results-Last 24 Hrs: Lab Results-Last 24 Hours 08/04/21 08/05/21 08/05/21 Range/Units 16:36 04:20 08:29 WBC (4.0-10.5) K/mm3 RBC (4.1-5.4) M/mm3 Hgb (12.0-16.0) gm/dl Hct (35-47) % MCV (78-100) fl MCH (26-32) pg MCHC (32-36) g/dl RDW (11.5-14.0) % Plt Count (150-450) K/mm3 MPV (7.5-11.0) fl Segmented Neutrophils 77 H (36.0-66.0) % Band Neutrophils 2 (0.0-2.0) % Lymphocytes (Manual) 15 L (24-44) % Monocytes (Manual) 5 (0.0-12.0) % Basophils (Manual) 1 (0.0-1.0) % Toxic Granulation 2+ Platelet Estimate NORMAL (NORMAL) RBC Morphology NORMAL POC Glucometer 83 (74 to 106) mg/dL Screen SEE SEPARATE REPORT 08/05/21 08/06/21 Range/Units 22:22 05:30 WBC 11.7 H (4.0-10.5) K/mm3 RBC 3.28 L (4.1-5.4) M/mm3 Hgb 10.5 L (12.0-16.0) gm/dl Hct 31.9 L (35-47) % MCV 97.3 (78-100) fl MCH 32.0 (26-32) pg MCHC 32.9 (32-36) g/dl RDW 13.8 (11.5-14.0) % Plt Count 116 L (150-450) K/mm3 MPV 12.7 H (7.5-11.0) fl Segmented Neutrophils (36.0-66.0) % Band Neutrophils (0.0-2.0) % Lymphocytes (Manual) (24-44) % Monocytes (Manual) (0.0-12.0) % Basophils (Manual) (0.0-1.0) % Toxic Granulation Platelet Estimate (NORMAL) RBC Morphology POC Glucometer 110 H (74 to 106) mg/dL Screen Micro Results-Entire Visit: Accuchecks Date 08/05/21 Time 22:00 - Procedures and Test Procedures and Tests throughout Hospitalization: Therapy Orders & Screens 08/04/21 14:25 Standby ROUTINE Comment: Diagnosis: pre eclampsia Discharge Exam General Appearance: no apparent distress, alert Neurologic Exam: alert, oriented x 3 Respiratory Exam: normal breath sounds, lungs clear, No respiratory distress Cardiovascular Exam: regular rate/rhythm, normal heart sounds Gastrointestinal/Abdomen Exam: soft, No tenderness, No mass Extremity Exam: normal inspection, normal range of motion Skin Exam: normal color, warm, dry Final Diagnosis/Problem List - Final Discharge Diagnosis/Problem (1) Vaginal delivery Current Visit: Yes Status: Acute Code(s): O80 - ENCOUNTER FOR FULL-TERM UNCOMPLICATED DELIVERY (2) Second degree perineal laceration during delivery Current Visit: Yes Status: Acute Code(s): O70.1 - SECOND DEGREE PERINEAL LACERATION DURING DELIVERY (3) Gestational diabetes Current Visit: Yes Status: Acute Code(s): O24.419 - GESTATIONAL DIABETES MELLITUS IN , UNSP CONTROL (4) Pre-eclampsia, mild Current Visit: Yes Status: Acute Code(s): O14.00 - MILD TO MODERATE PRE- ECLAMPSIA, UNSPECIFIED TRIMESTER - Discharge Disposition: Home, Self-Care Condition: Stable Prescriptions: Continue Ondansetron ODT 4 MG [Zofran Odt 4 mg] 4 mg PO Q6H PRN PRN #10 tab.rapdis PRN Reason: Vomiting Vits W-Ca,Fe,FA(<1Mg) [] 1 each PO DAILY Ferrous Sulfate [Iron] 325 mg PO BID Famotidine 20 mg [Pepcid 20 MG] 40 mg PO DAILY Loratadine 10 mg [Claritin 10 mg] 10 mg PO DAILY Discontinued Labetalol HCl 100 mg [Trandate 100 MG] 200 mg PO TID glyBURIDE [Glyburide] 5 mg PO QAM glyBURIDE [Glyburide] 1.5 tab PO EVENING MEAL Follow up with: DK LAW MD [ACTIVE STAFF] - 1 Week
[2021-08-06 08:16] LABS: BAND 3 % (0.0-2.0); Eosinophil 1 % (0.00-3.0); Lymphocytes 11 % (24-44); Monocyte 4 % (0.0-12.0); Neutrophils 81 % (36.0-66.0); Platelet Estimate DECREASED (NORMAL); Total Cells Counted 100
[2021-08-06] MEDS: Trandate 100 MG PO SCH (10:50)
[2021-08-06] MEDS: Colace 100 MG PO SCH (10:55)
[2021-08-06] MEDS: FERREX 150 PO SCH (10:56)
[2021-08-06 11:58] VITALS: BP 123/80; PULSE 86
== END 2021-08-06 12:10 | disposition home or self-care (01) | DRG 807 ==
LOC: OB 08:21 → OBSVTOIN 08-04 08:21
PROVIDERS: ADMIT Family Medicine; ATTEND Family Medicine
PROC: 10E0XZZ Delivery of Products of Conception, External Approach (ICD-10-PCS; principal; 2021-08-04)
PROC: 0KQM0ZZ Repair Perineum Muscle, Open Approach (ICD-10-PCS; 2021-08-04)
DX: O24.429 Gestational diabetes mellitus in childbirth, unspecified control (principal); Z37.0 Single live birth; O14.04 Mild to moderate pre-eclampsia, complicating childbirth; O70.1 Second degree perineal laceration during delivery; Z3A.38 38 weeks gestation of pregnancy; O72.3 Postpartum coagulation defects
CPT/HCPCS: 36415; 80053; 80307; 81001; 82947; 84550; 85025; 85461; 86850; 86900; 86901; 94799; 96372; G0378; J0290; J0595; J2590; J2790; J2795; A9270-GY

== ENCOUNTER 2021-09-01 10:46 | Emergency (ER) | payer OTHER ==
[2021-09-01 11:29] LABS: Appearance CLEAR (CLEAR); Bacteria RARE /HPF (NEGATIVE); Bilirubin NEGATIVE (NEGATIVE); Blood SMALL Ery/ul (0-5); Glucose NEGATIVE (NEGATIVE); Ketones NEGATIVE (NEGATIVE); Leukocyte Esterase NEGATIVE (NEGATIVE); Mucus SLIGHT /HPF (NEGATIVE); Nitrite NEGATIVE (NEGATIVE); Protein,Urine Dip NEGATIVE (Negative); Specific Gravity 1.015 (1.005-1.025); Urobilinogen NEGATIVE mg/dL (0-1); WBC 0-2 /HPF (0-5)
[2021-09-01 11:38] LABS: Absolute Neutrophil Ct (ANC) 4.04 (1.4-6.9); BASOPHIL % 0.2 % (0.0-0.4); Basophil (Absolute #) 0.01 (0-0.4); Eosinophil % 4.2 % (0.00-5.0); Eosinophil (Absolute #) 0.25 (0-0.5); Hematocrit 41.2 % (35-47); Hemoglobin 14.1 gm/dl (12.0-16.0); Lymphocytes % 21.7 % (24.0-44.0); Mean Cell Volume 91.2 fl (78-100); Mean Corpuscular Hemoglobin 31.2 pg (26-32); Mean Corpuscular Hgb Concent. 34.2 g/dl (32-36); Monocyte (Absolute #) 0.39 (0.0-1.3); Monocytes % 6.5 % (0.0-12.0); Neutrophil % 67.4 % (36.0-66.0); Platelet Count 185 K/mm3 (150-450); Red Blood Count 4.52 M/mm3 (4.1-5.4)
[2021-09-01 11:44] LABS: ALBUMIN 4.6 g/dL (3.5-5.0); ALKALINE PHOSPHATASE 85 U/L (38-126); ANION GAP 15.8 MEQ/L (5-15); BLOOD UREA NITROGEN 9 mg/dL (7-17); CHLORIDE 105 mmol/L (98-107); Calcium 9.3 mg/dL (8.4-10.2); Carbon Dioxide 26 mmol/L (22-30); EST GLOMERULAR FILTRATION RATE > 60.0 ML/MIN; Glucose 94 mg/dL (74-106); Potassium 4.3 mmol/L (3.5-5.1); SGOT/AST 70 U/L (14-36); SGPT/ALT 114 U/L (0-35); SODIUM 142 mmol/L (137-145); Total Protein 7.4 g/dL (6.3-8.2)
--- NOTE | 2021-09-01 12:19 | XRAY ---
Indication: Headache, blurred vision, and high blood pressure. Multiple contiguous axial images obtained through the head without contrast. Comparison: None Normal appearing brain parenchyma, ventricles, and bony calvarium. Visualized paranasal sinuses and mastoid air cells are clear. Impression: Normal CT head without contrast exam.
--- NOTE | 2021-09-01 13:00 | ERPHSYRPT ---
- History of Present Illness Source: patient Exam Limitations: no limitations Patient Subjective Stated Complaint: pt here for high b/p and headache with some blood vision Triage Nursing Assessment: pt alert, waked in, resp easy, skin w/d/p. face mask in place Physician History: 26 yo wf s/p uncomplicated vag delivery 4 weeks ago presents w L frontal headache since last night. Pt was on Labetalol during which was stopped after delivery. Pain is sharp and 5/10. Blood pressure was elevated at home. She had scotoma and auras. Pt has had nausea wo significant vomiting. She denies fever/focal weakness/head injury/stiff neck. Pt is breast feeding. Timing/Duration: yesterday Quality: sharpness Head Pain Location: frontal (Left) Severity of Pain-Max: severe Severity of Pain-Current: moderate Recent Head Trauma: no recent headache/trauma Associated Symptoms: light-headedness, nausea/vomiting, scotoma, vision changes, visual disturbance, No confusion, No dizziness, No fatigue, No facial pain, No fever/chills, No flushing, No loss of consciousness, No nasal congestion, No nasal drainage, No neck pain, No numbness in legs/feet, No rash, No sweating, No seizures, No sinus infection, No sensitive to light, No speech problems, No stiff neck, No trouble walking, No weakness Previous symptoms: no prior history Allergies/Adverse Reactions: shellfish derived Allergy (Severe, Verified 09/01/21 10:58) Swelling aspirin Adverse Reaction (Severe, Verified 09/01/21 10:58) Hives jalapeno Allergy (Severe, Uncoded 09/01/21 10:58) Swelling Home Medications: Vits W-Ca,Fe,FA(<1Mg) [] 1 each PO DAILY 01/13/21 [History] Hx Tetanus, Diphtheria Vaccination/Date Given: Yes Hx Influenza Vaccination/Date Given: No Hx Pneumococcal Vaccination/Date Given: No Immunizations Up to Date: Yes Travel Risk - International Travel Have you traveled outside of the country in past 3 weeks: No - Coronavirus Screening Are you exhibiting any of the following symptoms?: No Close contact with a COVID-19 positive Pt in past 14-21 Days: No - Vaccine Status Have you recieved a Covid-19 vaccination: No - Review of Systems Constitutional: No Symptoms Eyes: No Symptoms, Vision Changes Ears, Nose, & Throat: No Symptoms Respiratory: No Symptoms Cardiac: No Symptoms Abdominal/Gastrointestinal: No Symptoms, Nausea Genitourinary Symptoms: No Symptoms Musculoskeletal: No Symptoms Skin: No Symptoms Neurological: No Symptoms Psychological: No Symptoms Endocrine: No Symptoms Hematologic/Lymphatic: No Symptoms Immunological/Allergic: No Symptoms - Past Medical History Pertinent Past Medical History: Yes Neurological History: No Pertinent History ENT History: No Pertinent History Cardiac History: Arrhythmia Respiratory History: No Pertinent History Endocrine Medical History: No Pertinent History Musculoskeletal History: No Pertinent History GI Medical History: Diverticulitis History: No Pertinent History Psycho-Social History: No Pertinent History Female Reproductive Disorders: No Pertinent History - Past Surgical History Past Surgical History: Yes Neuro Surgical History: No Pertinent History Cardiac: Other Musculoskeletal: Orthopedic Surgery Other Surgical History: T&A,left hand surgery,catheterablation heart - Social History Smoking Status: Never smoker Exposure to second hand smoke: No Alcohol Use: Socially Drug Use: none Patient Lives Alone: Yes Significant Family History: no pertinent family hx - Female History Hx Last Menstrual Period: oct 2020 Hx Now: No - Nursing Vital Signs Nursing Vital Signs: Initial Vital Signs Temperature 98.5 F 09/01/21 10:56 Pulse Rate 89 09/01/21 10:56 Respiratory Rate 18 09/01/21 10:56 Blood Pressure 167/115 09/01/21 10:56 O2 Sat by Pulse Oximetry 98 09/01/21 10:56 Pain Scale Pain Intensity 2 Hypertensive - Physical Exam General Appearance: no apparent distress Eye Exam: PERRL/EOMI, eyes nml inspection Ears, Nose, Throat Exam: normal ENT inspection, TMs normal, pharynx normal, moist mucous membranes Neck Exam: normal inspection, non-tender, supple, full range of motion, No meningismus, No mass, No Brudzinski, No Kernig's Respiratory Exam: normal breath sounds, lungs clear, airway intact Cardiovascular Exam: regular rate/rhythm, normal heart sounds, normal peripheral pulses, No murmur Gastrointestinal/Abdominal Exam: soft Back Exam: normal inspection, normal range of motion Extremity Exam: normal inspection, normal range of motion Mental Status Exam: alert, oriented x 3, cooperative kindergarten classroom teacher Exam: normal hearing, normal speech, PERRL, abnormal eye position Coordination/Gait Exam: normal gait, normal cerebellar function Motor/Sensory Exam: no motor deficit, no sensory deficit, no pronator drift, negative Babinski's sign DTR Exam: bicep (R): 2+, bicep (L): 2+ Skin Exam: normal color, warm, dry, No rash Lymphatic Exam: No adenopathy SpO2 Interpretation: normal SpO2: 98 O2 Delivery: Room Air - Course Nursing assessment & vital signs reviewed: Yes - CT Exams Head CT Interpretation: Discussed w/radiologist (CT head neg) Ordered Tests: Active Orders 24 hr Category Date Time Status HEAD WITHOUT CONTRAST [CT] Stat Exams 09/01/21 11:16 Completed CBC W DIFF Stat Lab 09/01/21 11:25 Completed CMP Stat Lab 09/01/21 11:25 Completed UA W/RFX UR CULTURE Stat Lab 09/01/21 11:20 Completed Lab/Rad Data: Laboratory Result Diagrams 09/01/21 11:25 09/01/21 11:25 Laboratory Results 09/01/21 09/01/21 09/01/21 Range/Units 11:25 11:25 11:20 WBC 6.0 (4.0-10.5) K/mm3 RBC 4.52 (4.1-5.4) M/mm3 Hgb 14.1 (12.0-16.0) gm/dl Hct 41.2 (35-47) % MCV 91.2 (78-100) fl MCH 31.2 (26-32) pg MCHC 34.2 (32-36) g/dl RDW 12.0 (11.5-14.0) % Plt Count 185 (150-450) K/mm3 MPV 12.0 H (7.5-11.0) fl Gran % 67.4 H (36.0-66.0) % Eos # (Auto) 0.25 (0-0.5) Absolute Lymphs (auto) 1.30 (1.0-4.6) Absolute Monos (auto) 0.39 (0.0-1.3) Lymphocytes % 21.7 L (24.0-44.0) % Monocytes % 6.5 (0.0-12.0) % Eosinophils % 4.2 (0.00-5.0) % Basophils % 0.2 (0.0-0.4) % Absolute Granulocytes 4.04 (1.4-6.9) Basophils # 0.01 (0-0.4) Sodium 142 (137-145) mmol/L Potassium 4.3 (3.5-5.1) mmol/L Chloride 105 (98-107) mmol/L Carbon Dioxide 26 (22-30) mmol/L Anion Gap 15.8 H (5-15) MEQ/L BUN 9 (7-17) mg/dL Creatinine 0.70 (0.52-1.04) mg/dL Estimated GFR > 60.0 ML/MIN Glucose 94 (74-106) mg/dL Calcium 9.3 (8.4-10.2) mg/dL Total Bilirubin 0.60 (0.2-1.3) mg/dL AST 70 H (14-36) U/L ALT 114 H (0-35) U/L Alkaline Phosphatase 85 (38-126) U/L Serum Total Protein 7.4 (6.3-8.2) g/dL Albumin 4.6 (3.5-5.0) g/dL Urine Color YELLOW (YELLOW) Urine Appearance CLEAR (CLEAR) Urine pH 6.0 (5-6) Ur Specific [place] 1.015 (1.005-1.025) Urine Protein NEGATIVE (Negative) Urine Ketones NEGATIVE (NEGATIVE) Urine Blood SMALL (0-5) Pito/ul Urine Nitrite NEGATIVE (NEGATIVE) Urine Bilirubin NEGATIVE (NEGATIVE) Urine Urobilinogen NEGATIVE (0-1) mg/dL Ur Leukocyte Esterase NEGATIVE (NEGATIVE) Urine WBC (Auto) 0-2 (0-5) /HPF Urine RBC (Auto) 3-5 (0-2) /HPF U Epithel Cells (Auto) NONE (FEW) /HPF Urine Bacteria (Auto) RARE (NEGATIVE) /HPF Urine Mucus (Auto) SLIGHT (NEGATIVE) /HPF Urine Culture Reflexed NO (NO) Urine Glucose NEGATIVE (NEGATIVE) mg/dL - Progress Progress: improved Progress Note: 09/01/21 13:22 Pt's BP decreased during stay wo treatment Pt's ADAME improved, and she refused pain meds Pt refused CV19 testing. Pt advised to restart Labetalol if BP greater than 140/90 Counseled pt/family regarding: lab results, diagnosis, need for follow-up, rad results - Departure Departure Disposition: Home Clinical Impression: Headache, Hypertension Condition: Stable Critical Care Time: No Referrals: JANNET BRITO TOOL AND DIE INSPECTOR [Primary Care Provider] - Instructions: Headache, Adult (DC), Headache, Child (DC) Additional Instructions: Start Labetalol if blood pressure is consistently above 140/[address] Van Return to ER for increasing pain/focal weakness/temperature greater than 100.5
[2021-09-01 13:40] VITALS: BP 135/91; PULSE 69
[2021-09-01 17:36] VITALS: O2SAT 98
== END 2021-09-01 13:38 | disposition home or self-care (01) ==
LOC: ED 10:46
DX: R51.9 Headache, unspecified (principal); I10 Essential (primary) hypertension; R12 Heartburn; R11.2 Nausea with vomiting, unspecified
CPT/HCPCS: 36415; 70450; 80053; 81001; 85025; 99284

== ENCOUNTER 2022-04-28 07:00 | Day surgery (SDC) | payer OTHER ==
[2022-04-28] MEDS ORDERED: Lactated Ringers 1,000 ML IV ONE ×2 (07:45→09:53)
[2022-04-28] MEDS ORDERED: CEFAZOLIN 2 GM-D5W BAG** 2 GM/50 ML ML IV SCH (08:00)
[2022-04-28] MEDS ORDERED: Lactated Ringers 1,000 ML IV SCH (08:00)
[2022-04-28] MEDS ORDERED: Versed 2 MG/2 ML Injection ONE (08:52)
[2022-04-28] MEDS ORDERED: SUBLIMAZE 100 MCG/2 ML ONE (08:52)
[2022-04-28] MEDS ORDERED: DIPRIVAN 200 MG/20 ML IV ONE (08:52)
[2022-04-28] MEDS ORDERED: Xylocaine-Mpf 2% 5 Ml Vial ONE (08:52)
[2022-04-28] MEDS ORDERED: ARZOL Silver Nitrate Applicator TP ONE (09:22)
[2022-04-28 10:07] VITALS: O2SAT 97
[2022-04-28 10:27] VITALS: BP 133/91; PULSE 71
--- NOTE | 2022-04-29 09:44 | OP ---
SURGERY DATE/TIME: 04/28/2022 09 PREOPERATIVE DIAGNOSIS: Abnormal uterine bleeding. POSTOPERATIVE DIAGNOSIS: Abnormal uterine bleeding. PROCEDURE: Hysteroscopy D&C. SURGEON: Gabo Jim D.O. [employer] HAND: Ned Laura surgical technologist. ANESTHESIA: General. ESTIMATED BLOOD LOSS: Minimal. COMPLICATIONS: None. INDICATIONS: The risks, benefits, indications and alternatives of the procedure were reviewed with the patient prior to the procedure. The patient understood the risk of infection, bleeding, bowel injury, bladder injury, ureteral injury, uterine perforation and pelvic infection associated with the surgery however desires to have this surgery as a possible means to alleviate her current medical condition. DESCRIPTION OF PROCEDURE AND FINDINGS: At this point the patient is taken to the operating room, given general sedation, placed in dorsal lithotomy position, prepped and draped in the usual sterile fashion. A weighted speculum is then placed in the patient's vagina and the anterior lip of the cervix was grasped with a single tooth tenaculum. Endocervical dilators were advanced through the endocervical canal as a means to dilate the cervix and the uterus was sounded to approximately 7 cm. From this point, a 5 mm hysteroscope was then placed through the endocervical canal to visualize the endometrial lining which appeared to be within normal limits with no gross abnormalities that were noted. The hysteroscope was then removed and a curette was then placed into the fundus of the uterus where curettage was performed in all quadrants of the uterus where there was a mild to moderate amount of endometrial tissue that was retrieved. Hemostasis was obtained at this point. From this point, all instruments were removed from the patient's vaginal region. The patient was then taken out of the dorsal lithotomy position, was taken out of anesthesia and was then taken to the recovery room in stable condition. All instruments and laps were accounted for x2.
== END 2022-04-28 10:50 | disposition home or self-care (01) ==
LOC: SDC 07:00
PROVIDERS: ATTEND Obstetrics & Gynecology
DX: N93.9 Abnormal uterine and vaginal bleeding, unspecified (principal)
CPT/HCPCS: 81025; 93005; J0690; J2250; J2704; J3010; A9270-GY

== ENCOUNTER 2022-08-15 21:19 | Emergency (ER) | payer OTHER ==
[2022-08-15] MEDS ORDERED: Sodium Chloride 0.9% 1000 ML 1,000 ML IV STA (22:44)
[2022-08-15] MEDS ORDERED: MORPHINE SULFATE 4 MG INJ IV ONE (22:44)
[2022-08-15] MEDS ORDERED: Zofran 4 MG/2 ML VIAL IV ONE (22:44)
[2022-08-15 23:00] LABS: Appearance CLEAR (CLEAR); Bilirubin NEGATIVE (NEGATIVE); Glucose NEGATIVE (NEGATIVE); Ketones NEGATIVE (NEGATIVE)
[2022-08-15 23:01] LABS: Dipstick done @ ? MAIN LAB; Nitrite NEGATIVE (NEGATIVE); Ph 6.5 (5-6); Protein,Urine Dip NEGATIVE (Negative); RBC NEGATIVE Ery/ul (0-5); Urobilinogen 0.2 mg/dL (0-1)
--- NOTE | 2022-08-15 23:01 | ERPHSYRPT ---
- History of Present Illness Time Seen by Provider: 08/15/22 21:43 Historian: patient Exam Limitations: no limitations Patient Subjective Stated Complaint: pt states "I have this lower right stomach pain the past 4 hours." Triage Nursing Assessment: pt ambulated into the er; pt is axo x4; c/o RLQ; pt states 7/10 pain to RLQ; hx of d&C in april; hx abdnormal uterine bleeding; hyperactive bowel sounds in all quads; pt denies diarrhea; c/o N/V; pt states last menstrual cycle 2 days ago; vitals wnl; skin PDW Physician History: 27-year-old female presented to ER with history of right lower quadrant pain for quite some time off and on presented with worsening RLQ pain for last 4 hours, rated 7/10 sharp nonradiating, aggravated with movements palpation and associated multiple episodes of nonprojectile, nonbilious vomiting without hematemesis. Patient reports she has irregular cycle and is getting hormonal replacement to regularize her cycle. Timing/Duration: hour(s) (4), constant, gradual onset, worse Activities at Onset: rest Quality: sharpness Abdominal Pain Onset Location: RLQ Pain Radiation: no radiation Severity of Pain-Max: severe Severity of Pain-Current: moderate Modifying Factors: Worsens With: movement, palpation Associated Symptoms: nausea, vomiting Previous symptoms: same symptoms as today Allergies/Adverse Reactions: shellfish derived Allergy (Severe, Verified 04/28/22 07:15) Swelling aspirin Adverse Reaction (Severe, Verified 04/28/22 07:15) Hives jalapeno Allergy (Severe, Uncoded 04/28/22 07:15) Swelling Home Medications: Norgestimate-Ethinyl Estradiol [Tri-Lo-Mattie Tablet] 1 each PO DAILY 04/28/22 [History] Hx Tetanus, Diphtheria Vaccination/Date Given: Yes Hx Influenza Vaccination/Date Given: No Hx Pneumococcal Vaccination/Date Given: No Travel Risk - International Travel Have you traveled outside of the country in past 3 weeks: No - Coronavirus Screening Are you exhibiting any of the following symptoms?: No Close contact with a COVID-19 positive Pt in past 14-21 Days: No - Vaccine Status Have you recieved a Covid-19 vaccination: No - Review of Systems Constitutional: No Symptoms Eyes: No Symptoms Ears, Nose, & Throat: No Symptoms Respiratory: No Symptoms Cardiac: No Symptoms Abdominal/Gastrointestinal: Abdominal Pain, Nausea, Vomiting Genitourinary Symptoms: No Symptoms Musculoskeletal: No Symptoms Skin: No Symptoms Neurological: No Symptoms Endocrine: No Symptoms Hematologic/Lymphatic: No Symptoms - Past Medical History Pertinent Past Medical History: Yes Neurological History: No Pertinent History ENT History: No Pertinent History Cardiac History: Arrhythmia Respiratory History: No Pertinent History Endocrine Medical History: No Pertinent History Musculoskeletal History: No Pertinent History GI Medical History: Diverticulitis History: No Pertinent History Psycho-Social History: No Pertinent History Female Reproductive Disorders: Abnormal Uterine Bleeding - Past Surgical History Past Surgical History: Yes Neuro Surgical History: No Pertinent History Cardiac: Other Respiratory: No Pertinent History Gastrointestinal: No Pertinent History Genitourinary: No Pertinent History Musculoskeletal: Orthopedic Surgery Female Surgical History: Dilation & Curettage Other Surgical History: T&A,left hand surgery,catheterablation heart - Social History Smoking Status: Never smoker Exposure to second hand smoke: No Alcohol Use: Socially Drug Use: none Patient Lives Alone: No Significant Family History: no pertinent family hx - Female History Hx Now: (unkn) - Nursing Vital Signs Nursing Vital Signs: Initial Vital Signs Temperature 98.9 F 08/15/22 22:26 Pulse Rate 109 H 08/15/22 22:26 Respiratory Rate 18 08/15/22 22:26 Blood Pressure 129/90 08/15/22 22:26 O2 Sat by Pulse Oximetry 98 08/15/22 22:26 Pain Scale Pain Intensity 3 - Physical Exam General Appearance: no apparent distress, alert Eye Exam: PERRL/EOMI Ears, Nose, Throat Exam: normal ENT inspection Neck Exam: normal inspection, supple, full range of motion Respiratory Exam: normal breath sounds, lungs clear Cardiovascular Exam: normal heart sounds, tachycardia Gastrointestinal/Abdomen Exam: soft, normal bowel sounds, tenderness (Lower quadrant regarding) Back Exam: normal inspection, normal range of motion Extremity Exam: normal inspection, normal range of motion Neurologic Exam: alert, oriented x 3, cooperative Skin Exam: normal color SpO2 Interpretation: normal SpO2: 98 O2 Delivery: Room Air Ordered Tests: Active Orders 24 hr Category Date Time Status IV Insertion STAT Care 08/15/22 22:44 Active NPO (ED) STAT Care 08/15/22 22:44 Active ABDOMEN AND PELVIS W CONTRAST [CT] Stat Exams 08/15/22 22:45 Taken PELVIS TRANS VAGINAL [US] Stat Exams 08/16/22 00:00 Ordered CBC W DIFF Stat Lab 08/15/22 23:20 Completed CMP Stat Lab 08/15/22 23:20 Completed HCG,QUALITATIVE URINE Stat Lab 08/15/22 22:53 Completed LIPASE Stat Lab 08/15/22 23:20 Completed Lactic Acid Stat Lab 08/15/22 22:44 Completed UA W/RFX CULTURE Stat Lab 08/15/22 22:53 Completed Medication Summary Generic Name Dose Route Start Last Admin Trade Name Freq PRN Reason Stop Dose Admin Amoxicillin/Clavulanate Potassium 875 mg 08/16/22 01:05 Amox Tr/Potassium Clavulanate 875 Mg Tablet PO 08/16/22 01:06 STAT ONE Discontinued Medications Generic Name Dose Route Start Last Admin Trade Name Freq PRN Reason Stop Dose Admin Sodium Chloride 1,000 mls @ 999 mls/hr 08/15/22 22:44 08/16/22 00:22 Sodium Chloride 0.9% 1000 Ml IV 08/15/22 23:44 Infused .Q1H1M STA Infusion Sodium Chloride Confirm 08/15/22 23:14 Sodium Chloride 0.9% 1000 Ml Administered 08/15/22 23:15 Dose 1,000 mls @ ud .ROUTE .STK-MED ONE Morphine Sulfate 4 mg 08/15/22 22:44 08/15/22 23:15 Morphine Sulfate 4 Mg/Ml Injection IV 08/15/22 22:45 4 mg STAT ONE Administration Morphine Sulfate Confirm 08/15/22 23:14 Morphine Sulfate 4 Mg/Ml Injection Administered 08/15/22 23:15 Dose 4 mg .ROUTE .STK-MED ONE Morphine Sulfate 4 mg 08/16/22 00:17 08/16/22 00:19 Morphine Sulfate 4 Mg/Ml Injection IV 08/16/22 00:18 4 mg STAT ONE Administration Morphine Sulfate Confirm 08/16/22 00:17 Morphine Sulfate 4 Mg/Ml Injection Administered 08/16/22 00:18 Dose 4 mg .ROUTE .STK-MED ONE Ondansetron HCl 4 mg 08/15/22 22:44 08/15/22 23:16 Ondansetron Hcl 4 Mg/2 Ml Vial IV 08/15/22 22:45 4 mg STAT ONE Administration Ondansetron HCl Confirm 08/15/22 23:14 Ondansetron Hcl 4 Mg/2 Ml Vial Administered 08/15/22 23:15 Dose 4 mg .ROUTE .K-MED ONE Lab/Rad Data: Laboratory Result Diagrams 08/15/22 23:20 08/15/22 23:20 Laboratory Results 08/15/22 08/15/22 08/15/22 Range/Units 23:20 23:20 22:53 WBC 10.1 (4.0-10.5) x10^3/uL RBC 4.36 (4.1-5.4) x10^6/uL Hgb 13.2 (12.0-16.0) g/dL Hct 39.9 (35-47) % MCV 91.5 (78-100) fL MCH 30.3 (26-32) pg MCHC 33.1 (32-36) g/dL RDW 11.9 (11.5-14.0) % Plt Count 217 (150-450) x10^3/uL MPV 12.4 H (7.5-11.0) fL Gran % 76.9 H (36.0-66.0) % Immature Gran % (Auto) 0.3 (0.00-0.4) % Nucleat RBC Rel Count 0.0 (0.00-0.1) % Eos # (Auto) 0.12 (0-0.5) x10^3/uL Immature Gran # (Auto) 0.03 (0.00-0.03) x10^3u/L Absolute Lymphs (auto) 1.68 (1.0-4.6) x10^3/uL Absolute Monos (auto) 0.46 (0.0-1.3) x10^3/uL Absolute Nucleated RBC 0.00 (0.00-0.01) x10^3u/L Lymphocytes % 16.7 L (24.0-44.0) % Monocytes % 4.6 (0.0-12.0) % Eosinophils % 1.2 (0.00-5.0) % Basophils % 0.3 (0.0-0.4) % Absolute Granulocytes 7.75 H (1.4-6.9) x10^3/uL Basophils # 0.03 (0-0.4) x10^3/uL Sodium 139 (137-145) mmol/L Potassium 4.1 (3.5-5.1) mmol/L Chloride 105 (98-107) mmol/L Carbon Dioxide 26 (22-30) mmol/L Anion Gap 12.9 (5-15) MEQ/L BUN 11 (7-17) mg/dL Creatinine 0.57 (0.52-1.04) mg/dL Estimated GFR > 60.0 ML/MIN Glucose 108 H (74-106) mg/dL Lactic Acid (0.4-2.0) Calcium 9.1 (8.4-10.2) mg/dL Total Bilirubin 0.40 (0.2-1.3) mg/dL AST 20 (14-36) U/L ALT 21 (0-35) U/L Alkaline Phosphatase 85 (38-126) U/L Serum Total Protein 8.0 (6.3-8.2) g/dL Albumin 4.9 (3.5-5.0) g/dL Lipase 75 (23-300) U/L Urinalys Dipstick Clnc MAIN LAB Urine Color YELLOW (YELLOW) Urine Appearance CLEAR (CLEAR) Urine pH 6.5 (5-6) Ur Specific [place] 1.010 (1.005-1.025) POC Urine Protein Conf NEGATIVE (Negative) Urine Ketones NEGATIVE (NEGATIVE) Urine Nitrite NEGATIVE (NEGATIVE) Urine Bilirubin NEGATIVE (NEGATIVE) Urine Urobilinogen 0.2 (0-1) mg/dL Urine Leukocytes NEGATIVE (NEGATIVE) Urine WBC (Auto) NONE (0-5) /HPF Urine RBC (Auto) NONE (0-2) /HPF U Epithel Cells (Auto) NONE (FEW) /HPF Urine Bacteria (Auto) NONE (NEGATIVE) /HPF Urine RBC NEGATIVE (0-5) Pito/ul Ur Culture Indicated? NO Urine Glucose NEGATIVE (NEGATIVE) mg/dL Urine HCG, Qual (Negative) 08/15/22 08/15/22 Range/Units 22:53 22:44 WBC (4.0-10.5) x10^3/uL RBC (4.1-5.4) x10^6/uL Hgb (12.0-16.0) g/dL Hct (35-47) % MCV (78-100) fL MCH (26-32) pg MCHC (32-36) g/dL RDW (11.5-14.0) % Plt Count (150-450) x10^3/uL MPV (7.5-11.0) fL Gran % (36.0-66.0) % Immature Gran % (Auto) (0.00-0.4) % Nucleat RBC Rel Count (0.00-0.1) % Eos # (Auto) (0-0.5) x10^3/uL Immature Gran # (Auto) (0.00-0.03) x10^3u/L Absolute Lymphs (auto) (1.0-4.6) x10^3/uL Absolute Monos (auto) (0.0-1.3) x10^3/uL Absolute Nucleated RBC (0.00-0.01) x10^3u/L Lymphocytes % (24.0-44.0) % Monocytes % (0.0-12.0) % Eosinophils % (0.00-5.0) % Basophils % (0.0-0.4) % Absolute Granulocytes (1.4-6.9) x10^3/uL Basophils # (0-0.4) x10^3/uL Sodium (137-145) mmol/L Potassium (3.5-5.1) mmol/L Chloride (98-107) mmol/L Carbon Dioxide (22-30) mmol/L Anion Gap (5-15) MEQ/L BUN (7-17) mg/dL Creatinine (0.52-1.04) mg/dL Estimated GFR ML/MIN Glucose (74-106) mg/dL Lactic Acid 1.7 (0.4-2.0) Calcium (8.4-10.2) mg/dL Total Bilirubin (0.2-1.3) mg/dL AST (14-36) U/L ALT (0-35) U/L Alkaline Phosphatase (38-126) U/L Serum Total Protein (6.3-8.2) g/dL Albumin (3.5-5.0) g/dL Lipase (23-300) U/L Urinalys Dipstick Clnc Urine Color (YELLOW) Urine Appearance (CLEAR) Urine pH (5-6) Ur Specific Hastings (1.005-1.025) POC Urine Protein Conf (Negative) Urine Ketones (NEGATIVE) Urine Nitrite (NEGATIVE) Urine Bilirubin (NEGATIVE) Urine Urobilinogen (0-1) mg/dL Urine Leukocytes (NEGATIVE) Urine WBC (Auto) (0-5) /HPF Urine RBC (Auto) (0-2) /HPF U Epithel Cells (Auto) (FEW) /HPF Urine Bacteria (Auto) (NEGATIVE) /HPF Urine RBC (0-5) Pito/ul Ur Culture Indicated? Urine Glucose (NEGATIVE) mg/dL Urine HCG, Qual NEGATIVE (Negative) - Progress Progress: improved, pain not gone completely, re-examined Progress Note: 08/16/22 01:06 27-year-old is evaluated for right lower quadrant/pelvic area pain. She is given fluids and symptomatic treatment for pain, on reevaluation patient is fee ling much better but pain is not completely resolved. No guarding or rebound tenderness on repeated evaluation. Has normal white count, unremarkable chemistries. No UTI. Obtained CT abdomen pelvis which showed questionable infectious versus inflammatory proximal small bowel enteropathy. She is also on hormone pills and was worried about having hyperstimulation/torsion/pelvic congestion and have obtained an ultrasound which is negative for torsion, cul-de-sac fluid/cyst. I would give her Augmentin to go home and recommended taking pain medication and outpatient follow-up. DISCUSSED SIGNS symptoms of worsening needing return to ER which she seems understanding. I do not think she needs to be admitted and is stable for discharge Counseled pt/family regarding: lab results, diagnosis, need for follow-up, rad results - Departure Departure Disposition: Home Clinical Impression: Right lower quadrant pain, Enteropathy Condition: Stable Critical Care Time: No Referrals: DK LAW MD [Primary Care Provider] - Follow up/PCP as directed (1-2 days for reevaluation) SHERICE MULLEN DO [ACTIVE STAFF] - Follow up/PCP as directed (1-2 days for reevaluation) Instructions: Severe Abdominal Pain Additional Instructions: Take soft diet, plenty of fluid. Take Tylenol/ibuprofen as needed for pain. Follow-up with primary care and [facility] for reevaluation. Return to ER for intractable pain/vomiting/fever chills etc. per Prescriptions: Amox Tr/Potass Clav. 875 mg [Augmentin 875-125 Tablet] 875 mg PO BID #14 tablet
[2022-08-15 23:03] LABS: Urine Cultured Indicated? NO
[2022-08-15] MEDS ORDERED: Sodium Chloride 0.9% 1000 ML 1,000 ML ONE (23:14)
[2022-08-15] MEDS ORDERED: MORPHINE SULFATE 4 MG INJ ONE (23:14)
[2022-08-15] MEDS ORDERED: Zofran 4 MG/2 ML VIAL ONE (23:14)
[2022-08-15 23:45] LABS: Absolute Neutrophil Ct (ANC) 7.75 x10^3/uL (1.4-6.9); Basophil (Absolute #) 0.03 x10^3/uL (0-0.4); Eosinophil % 1.2 % (0.00-5.0); Eosinophil (Absolute #) 0.12 x10^3/uL (0-0.5); Hematocrit 39.9 % (35-47); Hemoglobin 13.2 g/dL (12.0-16.0); Lymphocyte (Absolute #) 1.68 x10^3/uL (1.0-4.6); Lymphocytes % 16.7 % (24.0-44.0); Mean Cell Volume 91.5 fL (78-100); Mean Corpuscular Hemoglobin 30.3 pg (26-32); Mean Corpuscular Hgb Concent. 33.1 g/dL (32-36); Mean Platelet Volume 12.4 fL (7.5-11.0); Monocyte (Absolute #) 0.46 x10^3/uL (0.0-1.3); Monocytes % 4.6 % (0.0-12.0); Neutrophil % 76.9 % (36.0-66.0); Platelet Count 217 x10^3/uL (150-450); Red Blood Count 4.36 x10^6/uL (4.1-5.4); Red Cell Distribution Width 11.9 % (11.5-14.0); White Blood Count 10.1 x10^3/uL (4.0-10.5)
[2022-08-15 23:57] LABS: ALBUMIN 4.9 g/dL (3.5-5.0); ALKALINE PHOSPHATASE 85 U/L (38-126); ANION GAP 12.9 MEQ/L (5-15); BLOOD UREA NITROGEN 11 mg/dL (7-17); CHLORIDE 105 mmol/L (98-107); Calcium 9.1 mg/dL (8.4-10.2); Carbon Dioxide 26 mmol/L (22-30); Creatinine 1 0.57 mg/dL (0.52-1.04); EST GLOMERULAR FILTRATION RATE > 60.0 ML/MIN; Glucose 108 mg/dL (74-106); LIPASE 75 U/L (23-300); Potassium 4.1 mmol/L (3.5-5.1); SGOT/AST 20 U/L (14-36); SGPT/ALT 21 U/L (0-35); SODIUM 139 mmol/L (137-145)
[2022-08-16] MEDS ORDERED: MORPHINE SULFATE 4 MG INJ IV ONE (00:17)
[2022-08-16] MEDS ORDERED: MORPHINE SULFATE 4 MG INJ ONE (00:17)
[2022-08-16] MEDS ORDERED: NORCO 5/325 MG PO ONE (01:05)
[2022-08-16] MEDS ORDERED: Augmentin 875-125 Tablet PO ONE (01:05)
[2022-08-16 01:06] VITALS: BP 132/96; PULSE 78; O2SAT 98
[2022-08-16] MEDS ORDERED: NORCO 5/325 MG ONE (01:09)
[2022-08-16] MEDS ORDERED: Augmentin 875-125 Tablet ONE (01:09)
--- NOTE | 2022-08-16 06:27 | XRAY ---
Indication: Right lower quadrant pain. History pancreatitis. Multiple contiguous axial images obtained through the abdomen and pelvis using 80 cc Isovue 370 contrast. Comparison: None Lung bases clear. Heart not enlarged. Noncontrasted stomach and bowel loops appear nonobstructed with normal appendix. A few jejunal bowel loops demonstrates mild circumferential wall thickening with fluid leveling favoring enteritis. No free fluid/air. Gallbladder contracted without gallstones. Remaining liver, gallbladder, pancreas, spleen, adrenal glands, kidneys, ureters, bladder, uterus, and aorta are unremarkable. No pathologic intraperitoneal lymphadenopathy. Osseous structures intact. Impression: Jejunal bowel wall thickening with fluid leveling favoring enteritis. Comment: Preliminary interpretation made by [facility]. No critical discrepancy.
--- NOTE | 2022-08-16 06:29 | XRAY ---
Indication: Right lower quadrant pain. 2-dimensional transvaginal pelvic sonogram performed. Comparison: March 24, 2022 Uterus again anteverted measuring 8.0 x 2.6 x 5.1 cm. No focal solid/cystic uterine mass. Endometrial stripe measures 4 mm. No endometrial cavity mass or fluid collection. Right ovary measures 1.9 x 2.1 x 1.9 cm and the left measures 3.8 x 3.5 x 2.1 cm. Normal perfusion and follicular cysts bilaterally. No suspicious adnexal mass or free fluid. Impression: Negative transvaginal pelvic sonogram. Comment: Preliminary report was given.
== END 2022-08-16 01:23 | disposition home or self-care (01) ==
LOC: ED 21:19
DX: K63.9 Disease of intestine, unspecified (principal); R10.31 Right lower quadrant pain; R11.2 Nausea with vomiting, unspecified; Z28.310 Unvaccinated for COVID-19
CPT/HCPCS: 36000; 36415; 74177; 76830; 80053; 81015; 81025; 83605; 83690; 85025; 96360; 96374; 96375; 96376; 99284; J2270; J2405; A9270-GY

== ENCOUNTER 2023-08-31 07:02 | Day surgery (SDC) | payer OTHER ==
[~2023-08-31 07:02] MED LIST: DIPRIVAN 200 MG/20 ML IV ONE; Decadron 4 MG INJ ONE; Sensorcaine 0.25% 10 ML ONE; TORAdol 30 mg Injection ONE; Xylocaine-Mpf 2% 5 Ml Vial ONE; Zofran 4 MG/2 ML VIAL ONE
[2023-08-31 07:29] LABS: HCG URINE TEST NEGATIVE (NEGATIVE)
[2023-08-31] MEDS ORDERED: CEFAZOLIN 2 GM-D5W BAG** 2 GM/50 ML ML IV SCH (07:30)
[2023-08-31] MEDS ORDERED: Lactated Ringers 1,000 ML IV SCH (07:30)
[2023-08-31] MEDS ORDERED: Lactated Ringers 1,000 ML IV ONE (07:32)
[2023-08-31] MEDS ORDERED: SUBLIMAZE 100 MCG/2 ML ONE (09:16)
[2023-08-31] MEDS ORDERED: Versed 2 MG/2 ML Injection ONE (09:16)
[2023-08-31] MEDS ORDERED: DIPRIVAN 200 MG/20 ML IV ONE ×2 (09:19→10:08)
[2023-08-31] MEDS ORDERED: Zemuron 100 MG/10 ML ONE (09:19)
[2023-08-31] MEDS ORDERED: BRIDION 200MG/2ML IV ONE (09:42)
[2023-08-31] MEDS ORDERED: Hydromorphone 1 mg/ml Injection ONE (10:45)
[2023-08-31 11:42] VITALS: TEMP 97.2
[2023-08-31 11:55] LABS: Appearance Clear (Clear); Bacteria None Seen /HPF (None Seen); Bilirubin Negative (Negative); Blood NHT (Negative); Epithelial Cells None Seen /HPF (None Seen); Glucose, Urine Negative (Negative); Hyaline Casts NONE SEEN /LPF (0-2); Ketones Negative (Negative); Leukocyte Esterase Negative (Negative); Nitrite Negative (Negative); Protein,Urine Dip Negative (Negative); Urobilinogen 0.2 mg/dL (0.2); WBC 0-2 /HPF (0-5)
[2023-08-31 11:57] VITALS: RESP 18; O2SAT 97
[2023-08-31 12:05] VITALS: BP 122/82; PULSE 78
--- NOTE | 2023-09-01 11:41 | OP ---
SURGERY DATE: 08/31/2023 SURGERY TIME: 919 PREOPERATIVE DIAGNOSIS: 1. ABNORMAL UTERINE BLEEDING AND MULTIPARITY DESIRE TUBAL STERILIZATION CONTRACEPTIVE CARE. POSTOPERATIVE DIAGNOSIS: 1. 1. ABNORMAL UTERINE BLEEDING AND MULTIPARITY DESIRE TUBAL STERILIZATION CONTRACEPTIVE CARE. PROCEDURE: 1. Laparoscopic tubal sterilization via Falope ring application and coagulation of both tubes with hysteroscopy D&C with NovaSure ablation. SURGEON: Dr. Gabo Jim. RETAIL LOSS PREVENTION INVESTIGATOR: Sylvie instrument and controls technician. ANESTHESIA: General. ESTIMATED BLOOD LOSS: Minimal. COMPLICATIONS: None. FINDINGS: The risks, benefits, indications, and alternatives of the procedure were reviewed with the patient prior to the procedure. Patient understood the risk of infection, bleeding, bowel injury, bladder injury, ureteral injury, pelvic infection, thromboembolic disorder, possible future and ectopic . All other forms of control had been discussed with the patient prior to the procedure. The patient desires to have this procedure as a possible means to alleviate her current medical condition. DESCRIPTION OF PROCEDURE: At this point, the patient was taken to the OR, given general sedation, placed in the dorsal lithotomy position, prepped and draped in the usual sterile fashion. A weighted speculum was then placed in the patient's vagina and a uterine manipulator was then inserted into the endocervical region as a means to manipulate the uterus with elevation of the uterus. Attention was then turned to the patient's abdomen where a 5 mm skin incision was made in the umbilical fold. 5 mm trocar and sleeve were advanced under direct visualization where pneumoperitoneum was obtained with 4 liters of CO2 gas. A survey of the patient's pelvis and abdomen revealed entirely normal anatomy with no gross abnormalities located within the pelvic cavity. From this point, an additional incision was made 2 cm above the symphysis pubis where an 8 mm incision was made and 8 mm trocar and sleeve were advanced under direct visualization. From this point, the Falope ring applicator was then taken and then the uterus was elevated and the right tube was then grasped with the Falope ring applicator where the Falope ring was then displaced onto the isthmic region of the fallopian tube with a fair amount of knuckle of tube and hemostasis was obtained. However, not satisfied with its placement. The same procedure was performed on the left side where the Falope ring applicator was reloaded and the Falope ring was placed on the left isthmic region with a good knuckle of tube that was taken and hemostasis was obtained. From this point, the bipolar instrument was used to coagulate the entire fallopian tube on the right side and left side was done contiguous to the Falope ring and hemostasis was obtained. There was no bleeding that was noted. At this point, all instruments were removed from the patient's abdominal region and incisions were closed with 4-0 Monocryl suture. Attention was then turned to the patient's vaginal region where a weighted speculum was then placed into the vaginal area. Tenaculum was then placed on the cervix and the cervix was then dilated with endocervical dilators where at this point the 5 mm hysteroscope was then placed towards the fundus of the uterus where visualization revealed no gross abnormalities. Hysteroscope was removed and a curette was then placed into the fundus of the uterus and curettage was performed in all quadrants of the uterus retrieving a mild to moderate amount of tissue. From this point, the NovaSure instrument was then placed into the fundus of the uterus, retracted approximately 1 cm, a measurement of 6.5 cm for the length, 3.0 cm for the width. The machine was turned on for an ablated time of 45 seconds. After complete ablation, the NovaSure was then disengaged and removed from the uterine cavity without complication. From this point, all instruments were removed from the patient's vaginal region. The patient was then taken out of the dorsal lithotomy position, was taken out of anesthesia, and was then taken to the recovery room in stable condition. All instruments and laps were accounted for X 2.
== END 2023-08-31 12:10 | disposition home or self-care (01) ==
LOC: SDC 07:02
PROVIDERS: ATTEND Obstetrics & Gynecology
DX: N93.9 Abnormal uterine and vaginal bleeding, unspecified (principal); Z30.2 Encounter for sterilization
CPT/HCPCS: 81001; 81025; 87086; J0690; J1100; J1170; J1885; J2250; J2405; J2704; J3010